=== PATIENT | male | born 1945 | race Caucasian/White ===

== ENCOUNTER 2016-10-08 13:35 | Outpatient (CLI) | payer MEDICARE, OTHER | END 2016-10-08 13:36 | disposition home or self-care (01) | DX: G47.33 Obstructive sleep apnea (adult) (pediatric) (principal) | CPT/HCPCS: 99214; G0463 ==

== ENCOUNTER 2017-01-30 08:50 | Outpatient (CLI) | payer MEDICARE, OTHER ==
[2017-01-30 13:25] LABS: BASOPHILS % (AUTO) 0.4 %; EOSINOPHILS # (AUTO) 0.1 10^3/uL (0.0-0.7); EOSINOPHILS % (AUTO) 1.2 %; HCT - HEMATOCRIT 40.5 % (42.0-52.0); HGB - HEMOGLOBIN 13.2 g/dL (14.0-18.0); LYMPHOCYTES % (AUTO) 32.5 %; MEAN CORPUSCULAR HEMOGLOBIN 29.5 pg (27.0-31.0); MEAN CORPUSCULAR HGB CONC 32.7 g/dL (32.0-36.0); MEAN CORPUSCULAR VOLUME 90.3 fL (80.0-94.0); MEAN PLATELET VOLUME 8.7 fL (7.4-11.4); MONOCYTES # (AUTO) 0.7 10^3/uL (0.0-1.0); MONOCYTES % (AUTO) 11.1 %; NEUTROPHILS # (AUTO) 3.4 10^3/uL (1.5-6.6); NEUTROPHILS % (AUTO) 54.8 %; RED BLOOD COUNT 4.49 10^6/uL (4.70-6.10); UNCORRECTED WHITE BLOOD COUNT 6.3 x10^3/uL; WHITE BLOOD COUNT 6.3 x10^3/uL (4.8-10.8)
[2017-01-30 13:53] LABS: ALBUMIN/GLOBULIN RATIO 1.2 (1.0-2.2); BILIRUBIN,TOTAL 0.4 mg/dL (0.2-1.0); BUN - BLOOD UREA NITROGEN 19 mg/dL (6-20); CALCIUM 9.5 mg/dL (8.5-10.3); CARBON DIOXIDE - CO2 24 mmol/L (21-32); CHLORIDE 106 mmol/L (101-111); CHOLESTEROL 128 mg/dL; CREATININE 1.1 mg/dL (0.6-1.2); GFR - MDRD 66 (>89); GLUCOSE 173 mg/dL (70-100); HDL CHOLESTEROL 43 mg/dL; LDL/HDL RATIO 1.3 (<3.6); SODIUM 139 mmol/L (135-145); TOTAL PROTEIN 7.6 g/dL (6.7-8.2); TRIGLYCERIDES 139 mg/dL; VLDL CHOLESTEROL 28 mg/dL
[2017-01-30 14:14] LABS: HEMOGLOBIN A1C 0.66 g/dL
== END 2017-01-30 08:51 | disposition home or self-care (01) ==
LOC: LAB.WCP 08:50
PROVIDERS: ATTEND Family Medicine
DX: E11.9 Type 2 diabetes mellitus without complications (principal); Z12.5 Encounter for screening for malignant neoplasm of prostate
CPT/HCPCS: 36415; 80053; 80061; 82043; 83036; 85025; G0103; 84153

== ENCOUNTER → 2017-05-06 | Outpatient (CLI) | payer MEDICARE, OTHER ==
[2017-05-06 13:14] LABS: BASOPHILS % (AUTO) 0.5 %; EOSINOPHILS # (AUTO) 0.1 10^3/uL (0.0-0.7); EOSINOPHILS % (AUTO) 1.4 %; HCT - HEMATOCRIT 40.2 % (42.0-52.0); HGB - HEMOGLOBIN 13.5 g/dL (14.0-18.0); LYMPHOCYTES # (AUTO) 2.3 10^3/uL (1.5-3.5); LYMPHOCYTES % (AUTO) 36.6 %; MEAN CORPUSCULAR HEMOGLOBIN 30.2 pg (27.0-31.0); MEAN CORPUSCULAR HGB CONC 33.5 g/dL (32.0-36.0); MEAN CORPUSCULAR VOLUME 90.1 fL (80.0-94.0); MONOCYTES # (AUTO) 0.6 10^3/uL (0.0-1.0); NEUTROPHILS # (AUTO) 3.3 10^3/uL (1.5-6.6); NEUTROPHILS % (AUTO) 51.5 %; NUCLEATED RED BLOOD CELLS AUTO 0.1 /100WBC; RED BLOOD COUNT 4.46 10^6/uL (4.70-6.10); RED CELL DISTRIBUTION WIDTH 14.7 % (12.0-15.0); UNCORRECTED WHITE BLOOD COUNT 6.4 x10^3/uL; WHITE BLOOD COUNT 6.4 x10^3/uL (4.8-10.8)
[2017-05-06 13:18] LABS: ALBUMIN/GLOBULIN RATIO 1.6 (1.0-2.2); BILIRUBIN,TOTAL 0.7 mg/dL (0.2-1.0); BUN - BLOOD UREA NITROGEN 18 mg/dL (6-20); CALCIUM 9.4 mg/dL (8.5-10.3); CARBON DIOXIDE - CO2 26 mmol/L (21-32); CHLORIDE 103 mmol/L (101-111); CHOLESTEROL 134 mg/dL; CREATININE 1.3 mg/dL (0.6-1.2); GFR - MDRD 55 (>89); GLUCOSE 188 mg/dL (70-100); HDL CHOLESTEROL 45 mg/dL; LDL/HDL RATIO 1.2 (<3.6); POTASSIUM 4.2 mmol/L (3.5-5.0); SODIUM 137 mmol/L (135-145); TOTAL PROTEIN 7.3 g/dL (6.7-8.2); TRIGLYCERIDES 166 mg/dL; URIC ACID 5.4 mg/dL (2.6-7.2); VLDL CHOLESTEROL 33 mg/dL
[2017-05-06 13:35] LABS: HEMOGLOBIN A1C 0.71 g/dL
== END ==
LOC: LAB.WCP 10:33
PROVIDERS: ATTEND Family Medicine
DX: E11.9 Type 2 diabetes mellitus without complications (principal); M25.50 Pain in unspecified joint
CPT/HCPCS: 36415; 80053; 80061; 83036; 84443; 84550; 85025; 85651; 86140; 86430

== ENCOUNTER 2017-05-10 08:57 | Outpatient (CLI) | payer MEDICARE, OTHER ==
--- NOTE | 2017-05-11 16:52 | Ultrasound Report ---
EXAM: RIGHT LOWER EXTREMITY ULTRASOUND - LIMITED EXAM DATE: 05/10/2017 09:28 AM. CLINICAL HISTORY: Palpable right calf lump for 6 months with increasing size COMPARISON: None available. TECHNIQUE: Real-time scanning was performed with static images obtained. FINDINGS: Sonographic evaluation over the area of palpable concern in the right calf shows no abnorma lity. IMPRESSION: 1. No focal sonographic abnormality identified in the area of concern. 2. If there is persistent clinical concern, consider contrast enhanced CT or MRI. [facility] Referring Provider Line: [phone] SITE ID: [id number]
== END 2017-05-10 08:58 | disposition home or self-care (01) ==
LOC: DI 08:57
PROVIDERS: ATTEND Family Medicine
DX: D49.2 Neoplasm of unspecified behavior of bone, soft tissue, and skin (principal)
CPT/HCPCS: 76882

== ENCOUNTER 2017-08-27 15:11 | Outpatient (CLI) | payer MEDICARE, OTHER ==
[2017-08-27 13:47] LABS: BASOPHILS # (AUTO) 0.1 10^3/uL (0.0-0.1); BASOPHILS % (AUTO) 0.7 %; EOSINOPHILS # (AUTO) 0.1 10^3/uL (0.0-0.7); EOSINOPHILS % (AUTO) 1.1 %; HGB - HEMOGLOBIN 14.5 g/dL (14.0-18.0); LYMPHOCYTES # (AUTO) 2.4 10^3/uL (1.5-3.5); LYMPHOCYTES % (AUTO) 32.8 %; MEAN CORPUSCULAR HEMOGLOBIN 30.2 pg (27.0-31.0); MEAN CORPUSCULAR HGB CONC 33.7 g/dL (32.0-36.0); MEAN CORPUSCULAR VOLUME 89.7 fL (80.0-94.0); MEAN PLATELET VOLUME 8.9 fL (7.4-11.4); MONOCYTES # (AUTO) 0.7 10^3/uL (0.0-1.0); MONOCYTES % (AUTO) 9.5 %; NEUTROPHILS % (AUTO) 55.9 %; PLT - PLATELET COUNT 173 10^3/uL (130-450); RED BLOOD COUNT 4.81 10^6/uL (4.70-6.10); RED CELL DISTRIBUTION WIDTH 14.4 % (12.0-15.0); WHITE BLOOD COUNT 7.2 x10^3/uL (4.8-10.8)
[2017-08-27 14:24] LABS: ALBUMIN 4.3 g/dL (3.2-5.5); ALBUMIN/GLOBULIN RATIO 1.4 (1.0-2.2); BILIRUBIN,TOTAL 0.6 mg/dL (0.2-1.0); CALCIUM 9.4 mg/dL (8.5-10.3); TOTAL PROTEIN 7.3 g/dL (6.7-8.2)
[2017-08-27 16:36] LABS: HB2 TOTAL 15.3 g/dL; HEMOGLOBIN A1C 0.82 g/dL; HEMOGLOBIN A1C % 7.1 % (4.6-6.2)
== END 2017-08-27 15:12 | disposition home or self-care (01) ==
LOC: LAB.WCP 15:11
PROVIDERS: ATTEND Family Medicine
DX: R10.13 Epigastric pain (principal); E11.9 Type 2 diabetes mellitus without complications
CPT/HCPCS: 36415; 80053; 83036; 83690; 85025

== ENCOUNTER 2017-09-06 10:09 | Emergency (ER) | payer MEDICARE, OTHER ==
--- NOTE | 2017-09-06 11:07 | XRAY Report ---
EXAM: CHEST RADIOGRAPHY EXAM DATE: 09/06/2017 10:53 AM. CLINICAL HISTORY: Cough. Hemoptysis. COMPARISON: 05/13/2016 chest x-ray. TECHNIQUE: 2 views. FINDINGS: Lungs/Pleura: Focal increased airspace opacity in the right upper lobe compared to prior study. Persi stent chronic asymmetric increased opacity in right middle lobe is once again seen. No other new inte rstitial or airspace opacities. No pleural effusion. No pneumothorax. Mediastinum: Heart and mediastinal contours are unremarkable. Other: None. IMPRESSION: 1. Asymmetric increased airspace opacity in right lung with new airspace opacities in the right upper lobe and persistent chronic right middle lobe airspace opacity. In the setting of hemoptysis, opacit y related to blood is a consideration. CT/CTA of the chest could be considered for further assessment . 2. Exam otherwise as above. [facility] Referring Provider Line: [phone] SITE ID: [id number]
--- NOTE | 2017-09-06 11:07 | XRAY Preliminary Report ---
Exam: XR CHEST 2 VIEW X-RAY IMPRESSION: 1. Asymmetric increased airspace opacity in right lung with new airspace opacities in the right upper lobe and persistent chronic right middle lobe airspace opacity. In the setting of hemoptysis, opacit y related to blood is a consideration. CT/CTA of the chest could be considered for further assessment . 2. Exam otherwise as above. [facility] SITE ID: [id number]
--- NOTE | 2017-09-06 12:18 | ED Physician Documentation ---
PD HPI DYSPNEA - Stated complaint Stated Complaint: COUGH - Chief complaint Chief Complaint: Resp - History obtained from History obtained from: Patient, Family - History of Present Illness Timing - onset: Other (He has had ongoing cough for several months, it really was not bothering him much. He does have a history of CVA, A. fib. He is on Eliquis. He also uses BiPAP at night. About 36 hours ago he developed shaking chills and body aches. His cough increased a little bit but it is still not bad. Initially he had blood-tinged sputum but today has had 5 episodes of gross hemoptysis. He has had clots, the describes him as being dime sized. Not mixed with sputum.) Review of Systems Ten Systems: 10 systems reviewed and negative Constitutional: reports: Fever, Chills, Myalgias, Fatigue Ears: denies: Drainage/discharge Nose: reports: Rhinorrhea / runny nose. denies: Congestion Throat: denies: Sore throat Respiratory: reports: Dyspnea, Cough, Hemoptysis. denies: Wheezing PD PAST MEDICAL HISTORY - Past Medical History Past Medical History: Yes Cardiovascular: Hypertension, High cholesterol, Atrial fibrillation Endocrine/Autoimmune: Type 2 diabetes - Past Surgical History Past Surgical History: Yes Ortho: Shoulder arthroplasty, Spine surgery, Other - Present Medications Home Medications: Ambulatory Orders Medication Instructions Recorded Confirmed Clopidogrel Bisulfate [Plavix] 1 tab PO DAILY 06/22/15 06/23/15 Cyanocobalamin (Vitamin B-12) 1,000 mg PO DAILY 06/22/15 06/23/15 [Vitamin B12] Fenofibrate Nanocrystallized 1 tab PO DAILY 06/22/15 06/22/15 [Tricor] Fluticasone [Flonase] 1 spray NS DAILY PRN 06/22/15 06/23/15 Gabapentin 1 tab PO DAILY 06/22/15 06/23/15 Insulin Glargine,Hum.rec.anlog 70 units SQ DAILY 06/22/15 06/22/15 [Lantus] Insulin Regular Human [NovoLIN R] 18 units SQ TID 06/22/15 06/22/15 Lisinopril 20 mg PO DAILY 06/22/15 06/22/15 Loratadine [Claritin] 1 tab PO DAILY 06/22/15 06/23/15 Metoprolol Tartrate [Lopressor] 50 mg PO BID 06/22/15 06/23/15 Niacin 1 tab PO DAILY 06/22/15 06/22/15 [place]-3 Fatty Acids [Fish Oil] 1 tab PO DAILY 06/22/15 06/23/15 Ranitidine HCl [Zantac] 1 tab PO BID 06/22/15 06/23/15 Simvastatin 1 tab PO DAILY 06/22/15 06/22/15 Tadalafil [Cialis] 1 tab PO DAILY PRN 06/22/15 06/22/15 Doxycycline Hyclate 100 mg PO BID #14 tablet 09/06/17 guaiFENesin/CODEINE [Robitussin AC] 5 - 10 ml PO Q6H PRN #120 ml 09/06/17 - Allergies Allergies/Adverse Reactions: Allergies Allergy/AdvReac Type Severity Reaction Status Date / Time amoxicillin trihydrate * Allergy Unknown Verified 09/06/17 10:24 [From Augmentin] potassium clavulanate * Allergy Unknown Verified 09/06/17 10:24 [From Augmentin] pseudoephedrine HCl * Allergy Anaphylaxis Verified 09/06/17 10:24 [From Sudafed] - Social History Does the pt smoke?: No Smoking Status: Never smoker Does the pt drink ETOH?: Yes ETOH Use: Liquor Does the pt have substance abuse?: No - Immunizations Immunizations are current?: Yes - POLST Patient has POLST: No PD ED PE NORMAL - Vitals Vital signs reviewed: Yes - General General: Alert and oriented X 3, No acute distress - HEENT HEENT: Ears normal, Pharynx benign - Neck Neck: Supple, no meningeal sign, No bony TTP - Cardiac Cardiac: RRR, No murmur - Respiratory Respiratory: No respiratory distress, Clear bilaterally - Abdomen Abdomen: Non tender - Derm Derm: No rash - Neuro Neuro: Alert and oriented X 3, Normal speech Results - Vitals Vitals: Vital Signs - 24 hr 09/06/17 09/06/17 10:19 12:51 Temperature 36.0 C L 36.5 C Heart Rate 70 70 Respiratory 20 20 Rate Blood Pressure 126/56 L 130/82 H O2 Saturation 98 95 Oxygen O2 Source Room air - Labs Labs: Laboratory Tests 09/06/17 09/06/17 09/06/17 11:25 11:25 12:25 WBC 12.7 H RBC 4.68 L Hgb 14.0 Hct 42.3 MCV 90.3 MCH 29.8 MCHC 33.0 RDW 14.4 Plt Count 167 MPV 8.7 Neut # 8.7 H Lymph # 2.5 [place] # 1.4 H Eos # 0.1 Baso # 0.0 Absolute Nucleated RBC 0.00 Nucleated RBC % 0.0 Sodium 138 Potassium 4.0 Chloride 97 L Carbon Dioxide 24 Anion Gap 17.0 H BUN 15 Creatinine 1.2 Estimated GFR (MDRD) 60 L Glucose 207 H Calcium 9.8 Total Bilirubin 0.6 AST 25 ALT 29 Alkaline Phosphatase 43 Total Protein 8.3 H Albumin 4.5 Globulin 3.8 Albumin/Globulin Ratio 1.2 Lipase 23 Influenza A (Rapid) Negative Influenza B (Rapid) Negative Influenza Types A,B Ag - - Rads (name of study) 2v chest Radiology: EMP read contemporaneously (Asymmetric airspace in the right lung, could be blood.) CT Chest Radiology: EMP read contemporaneously (Small but multilobar airspace consolidation most consistent with pneumonia, coronary disease and lymphadenopathy, aortic valve calcifications, small hiatal hernia and a fatty liver.) PD MEDICAL DECISION MAKING - ED course ED course: 72-year-old gentleman's who presents with symptoms most consistent with pneumonia but has had at least moderate volume hemoptysis, although not gross hemoptysis. Given the x-ray findings this was followed with a CT with results as shown. We placed him on doxycycline, it sounds most like post influenza pneumonia even though his Flu swab is negative. Follow-up advised for the findings on the CT of the chest. Departure - Departure Disposition: 01 Home, Self Care Clinical Impression: Aortic valve calcification Pneumonia Qualifiers: Pneumonia type: due to unspecified organism Laterality: right Lung location: unspecified part of lung Qualified Code(s): J18.9 - Pneumonia, unspecified organism Coronary artery disease Qualifiers: Coronary Disease-Associated Artery/Lesion type: [place] artery [place] vs. transplanted heart: [place] heart Associated angina: without angina Qualified Code(s): I25.10 - Atherosclerotic heart disease of [place] coronary artery without angina pectoris Condition: Good Record reviewed to determine appropriate education?: Yes Instructions: Pneumonia Dc Follow-Up: Emma Hoffman DO [Primary Care Provider] - Prescriptions: Doxycycline Hyclate 100 mg PO BID #14 tablet guaiFENesin/CODEINE [Robitussin AC] 5 - 10 ml PO Q6H PRN #120 ml PRN Reason: Cough Comments: Follow-up with your physician sometime next week. Anticipate she will want to repeat a chest x-ray in 4-6 weeks as discussed. Also follow-up with your bottle assembler, he may want to do further evaluation on the coronary disease seen on your chest CT. Return if worse. Your blood pressure was elevated today on check into the emergency department. This does not mean that you have hypertension, it is a common phenomenon to come to the emergency department and have elevated blood pressure. I recommend that you see your primary care physician within the week to have it rechecked when you are feeling better.
[2017-09-06 12:46] LABS: BASOPHILS % (AUTO) 0.3 %; EOSINOPHILS # (AUTO) 0.1 10^3/uL (0.0-0.7); EOSINOPHILS % (AUTO) 0.8 %; LYMPHOCYTES # (AUTO) 2.5 10^3/uL (1.5-3.5); LYMPHOCYTES % (AUTO) 19.9 %; MEAN CORPUSCULAR HEMOGLOBIN 29.8 pg (27.0-31.0); MEAN CORPUSCULAR VOLUME 90.3 fL (80.0-94.0); MEAN PLATELET VOLUME 8.7 fL (7.4-11.4); MONOCYTES # (AUTO) 1.4 10^3/uL (0.0-1.0); MONOCYTES % (AUTO) 10.7 %; NEUTROPHILS # (AUTO) 8.7 10^3/uL (1.5-6.6); NEUTROPHILS % (AUTO) 68.3 %; PLT - PLATELET COUNT 167 10^3/uL (130-450); RED BLOOD COUNT 4.68 10^6/uL (4.70-6.10); RED CELL DISTRIBUTION WIDTH 14.4 % (12.0-15.0); WHITE BLOOD COUNT 12.7 x10^3/uL (4.8-10.8)
[2017-09-06 12:58] LABS: ALBUMIN 4.5 g/dL (3.2-5.5); ALBUMIN/GLOBULIN RATIO 1.2 (1.0-2.2); BILIRUBIN,TOTAL 0.6 mg/dL (0.2-1.0); CALCIUM 9.8 mg/dL (8.5-10.3); CREATININE 1.2 mg/dL (0.6-1.2); TOTAL PROTEIN 8.3 g/dL (6.7-8.2)
[2017-09-06] MEDS ORDERED: IOPAMIDOL-300 100 ML VIAL ONE (13:07)
[2017-09-06] MEDS ORDERED: IOPAMIDOL-300 100 ML VIAL IVP ONE ×2 (13:24)
--- NOTE | 2017-09-06 13:53 | CT Preliminary Report ---
Exam: CT CHEST W/ IMPRESSION: 1. Multilobar airspace consolidation consistent with multilobar pneumonia. Multilobar parenchymal hem orrhage considered less likely. Follow-up radiographs are recommended in 4-6 weeks to assess for franco ge/resolution. 2. Numerous subcentimeter mediastinal and hilar lymph nodes. 3. Moderate coronary atherosclerosis. Aortic valve calcifications which can be seen with aortic valve disease. 4. Small hiatal hernia. 5. Fatty liver. [facility] SITE ID: [id number]
--- NOTE | 2017-09-06 14:07 | CT Report ---
EXAM: CT CHEST EXAM DATE: 09/06/2017 01:23 PM. CLINICAL HISTORY: Abnormal chest x-ray, hemoptysis. COMPARISONS: 05/13/2016. 09/06/2013. TECHNIQUE: Routine helical CT imaging was performed through the chest. IV contrast: 80 mL of Isovue-3 70. Reconstructions: Coronal and sagittal. In accordance with CT protocol optimization, one or more of the following dose reduction techniques w ere utilized for this exam: automated exposure control, adjustment of mA and/or KV based on patient s ize, or use of iterative reconstructive technique. FINDINGS: Lungs/Pleura: Airspace consolidation is seen along the mid medial and inferior right upper lobe as we ll as the right middle lobe medially and the medial right lower lobe. Inferior both anterior and post erior left lower lobe airspace consolidation is also evident. Groundglass opacities are seen in the r ight upper lobe. No endobronchial obstruction. No pneumothorax or pleural effusions. Mediastinum: Visualized thyroid gland is unremarkable. Subcentimeter mediastinal and hilar lymph node s are seen with the largest measuring 7 mm in short axis dimension. Heart size is normal. Coronary ar deirdre calcifications are seen, moderate in degree. Aortic valve calcifications are evident. Pulmonary arteries are unremarkable without evidence for radha tral embolus. Trace pericardial fusion. Small hiatal hernia. Bones: Degenerative changes of the thoracic spine. No acute osseous abnormalities. Visualized Abdomen: Fatty liver. Included portions of the gallbladder, adrenal, spleen, pancreas, and kidneys are unremarkable. Abdominal aorta atherosclerotic calcified plaque. Other: None. IMPRESSION: 1. Multilobar airspace consolidation consistent with multilobar pneumonia. Multilobar parenchymal hem orrhage possible although considered less likely. Follow-up radiographs are recommended in 4-6 weeks to assess for change/resolution. 2. Numerous subcentimeter mediastinal and hilar lymph nodes. 3. Moderate coronary artery atherosclerosis. Aortic valve calcifications which can be seen with aorti c valve disease. 4. Small hiatal hernia. 5. Fatty liver. [facility] Referring Provider Line: [phone] SITE ID: [id number]
[2017-09-06] MEDS ORDERED: DOXYCYCLINE 100 MG TABLET PO STA (14:14)
[2017-09-06 14:34] VITALS: BP 142/73
== END 2017-09-06 14:35 | disposition home or self-care (01) ==
LOC: ED 10:09
DX: I70.0 Atherosclerosis of aorta (principal); J18.9 Pneumonia, unspecified organism; I25.10 Atherosclerotic heart disease of native coronary artery without angina pectoris; E78.00 Pure hypercholesterolemia, unspecified; E11.9 Type 2 diabetes mellitus without complications; I10 Essential (primary) hypertension; I48.91 Unspecified atrial fibrillation; Z79.4 Long term (current) use of insulin; Z86.73 Personal history of transient ischemic attack (TIA), and cerebral infarction without residual deficits; Z79.01 Long term (current) use of anticoagulants
CPT/HCPCS: 36415; 71046; 71260; 80053; 83690; 85025; 87070; 87077; 87205; 87275; 87276; 99283; 99284; A9270; Q9967

== ENCOUNTER 2017-10-27 11:13 | Outpatient (CLI) | payer MEDICARE, OTHER | END 2017-10-27 11:14 | disposition home or self-care (01) | LOC: SC 11:13 | PROVIDERS: ATTEND Nurse Practitioner Family | DX: G47.33 Obstructive sleep apnea (adult) (pediatric) (principal) | CPT/HCPCS: 99214; G0463; 99212 ==

== ENCOUNTER 2018-03-23 11:08 | Outpatient (CLI) | payer MEDICARE, OTHER | END 2018-03-23 11:09 | disposition critical access hospital (66) | LOC: EMS 11:08 | PROVIDERS: ATTEND Surgery | DX: R45.851 Suicidal ideations (principal) | CPT/HCPCS: A0425; A0429 ==

== ENCOUNTER 2018-03-23 11:30 | Emergency (ER) | payer MEDICARE, OTHER ==
[2018-03-23 11:59] LABS: BASOPHILS % (AUTO) 0.7 %; EOSINOPHILS # (AUTO) 0.1 10^3/uL (0.0-0.7); EOSINOPHILS % (AUTO) 1.3 %; HGB - HEMOGLOBIN 13.1 g/dL (14.0-18.0); LYMPHOCYTES # (AUTO) 2.1 10^3/uL (1.5-3.5); LYMPHOCYTES % (AUTO) 32.9 %; MEAN CORPUSCULAR HEMOGLOBIN 30.7 pg (27.0-31.0); MEAN CORPUSCULAR HGB CONC 33.3 g/dL (32.0-36.0); MEAN CORPUSCULAR VOLUME 92.3 fL (80.0-94.0); MEAN PLATELET VOLUME 8.6 fL (7.4-11.4); MONOCYTES # (AUTO) 0.7 10^3/uL (0.0-1.0); MONOCYTES % (AUTO) 10.9 %; NEUTROPHILS # (AUTO) 3.5 10^3/uL (1.5-6.6); NEUTROPHILS % (AUTO) 54.2 %; PLT - PLATELET COUNT 176 10^3/uL (130-450); RED BLOOD COUNT 4.26 10^6/uL (4.70-6.10); RED CELL DISTRIBUTION WIDTH 14.8 % (12.0-15.0); WHITE BLOOD COUNT 6.4 x10^3/uL (4.8-10.8)
--- NOTE | 2018-03-23 12:14 | ED Physician Documentation ---
History of Present Illness - Stated complaint Stated Complaint: SI - Chief complaint Chief Complaint: MHE - Additonal information Additional information: hx from pt 72 male BIBA for suicidal ideation pt states his is his stressor his plan is to walk into traffic he has not harmed himself yet he denies HI he dies hallucinations he has not had any recent illness - no fever cough NVD urinary sx Review of Systems Constitutional: denies: Fever, Chills Cardiac: denies: Chest pain / pressure Respiratory: denies: Dyspnea GI: denies: Abdominal Pain, Nausea, Vomiting : denies: Dysuria Skin: denies: Rash Musculoskeletal: denies: Neck pain Neurologic: denies: Headache Psychiatric: reports: Depressed, Suicidal. denies: Homicidal, Hallucinations Endocrine: denies: Easy bruising / bleeding Immunocompromised: denies: Immunocompromised PD PAST MEDICAL HISTORY - Past Medical History Cardiovascular: Hypertension, High cholesterol, Atrial fibrillation Endocrine/Autoimmune: Type 2 diabetes - Past Surgical History Past Surgical History: Yes Ortho: Shoulder arthroplasty, Spine surgery, Other - Present Medications Home Medications: Ambulatory Orders Medication Instructions Recorded Confirmed Clopidogrel Bisulfate [Plavix] 1 tab PO DAILY 06/22/15 06/23/15 Cyanocobalamin (Vitamin B-12) 1,000 mg PO DAILY 06/22/15 06/23/15 [Vitamin B12] Fenofibrate Nanocrystallized 1 tab PO DAILY 06/22/15 06/22/15 [Tricor] Fluticasone [Flonase] 1 spray NS DAILY PRN 06/22/15 06/23/15 Gabapentin 1 tab PO DAILY 06/22/15 06/23/15 Insulin Glargine,Hum.rec.anlog 70 units SQ DAILY 06/22/15 06/22/15 [Lantus] Insulin Regular Human [NovoLIN R] 30 units SQ TID 06/22/15 06/22/15 Lisinopril 20 mg PO DAILY 06/22/15 06/22/15 Loratadine [Claritin] 1 tab PO DAILY 06/22/15 06/23/15 Metoprolol Tartrate [Lopressor] 50 mg PO BID 06/22/15 06/23/15 Niacin 1 tab PO DAILY 06/22/15 06/22/15 [place]-3 Fatty Acids [Fish Oil] 1 tab PO DAILY 06/22/15 06/23/15 Ranitidine HCl [Zantac] 1 tab PO BID 06/22/15 06/23/15 Simvastatin 1 tab PO DAILY 06/22/15 06/22/15 Tadalafil [Cialis] 1 tab PO DAILY PRN 06/22/15 06/22/15 Doxycycline Hyclate 100 mg PO BID #14 tablet 09/06/17 guaiFENesin/CODEINE [Robitussin AC] 5 - 10 ml PO Q6H PRN #120 ml 09/06/17 - Allergies Allergies/Adverse Reactions: Allergies Allergy/AdvReac Type Severity Reaction Status Date / Time amoxicillin trihydrate * Allergy Unknown Verified 03/23/18 11:43 [From Augmentin] potassium clavulanate * Allergy Unknown Verified 03/23/18 11:43 [From Augmentin] pseudoephedrine HCl * Allergy Anaphylaxis Verified 03/23/18 11:43 [From Sudafed] - Social History Does the pt smoke?: No Smoking Status: Never smoker Does the pt drink ETOH?: Yes Does the pt have substance abuse?: No - Immunizations Immunizations are current?: Yes - POLST Patient has POLST: No PD ED PE NORMAL - Vitals Vital signs reviewed: Yes - Neck Neck: Supple, no meningeal sign - Cardiac Cardiac: RRR - Respiratory Respiratory: No respiratory distress, Clear bilaterally - Abdomen Abdomen: Soft, Non tender - Derm Derm: Normal color - Neuro Neuro: Alert and oriented X 3, law firm administrator 2-12 intact, No motor deficit, No sensory deficit, Normal speech Eye Opening: Spontaneous Motor: Obeys Commands Verbal: Oriented GCS Score: 15 - Psych Psych: Other (depressed and admits to feeling suicidal) Results - Vitals Vitals: Vital Signs - 24 hr 03/23/18 03/23/18 11:35 13:02 Temperature 36.4 C L Heart Rate 69 65 Respiratory 16 20 Rate Blood Pressure 130/70 134/64 H O2 Saturation 94 97 Oxygen O2 Source Room air - Labs Labs: Laboratory Tests 03/23/18 03/23/18 03/23/18 11:54 11:54 11:54 WBC 6.4 RBC 4.26 L Hgb 13.1 L Hct 39.3 L MCV 92.3 MCH 30.7 MCHC 33.3 RDW 14.8 Plt Count 176 MPV 8.6 Neut # (Auto) 3.5 Lymph # (Auto) 2.1 [place] # (Auto) 0.7 Eos # (Auto) 0.1 Baso # (Auto) 0.0 Absolute Nucleated RBC 0.00 Nucleated RBC % 0.0 Sodium 137 Potassium 4.0 Chloride 102 Carbon Dioxide 30 Anion Gap 5.0 L BUN 15 Creatinine 1.0 Estimated GFR (MDRD) 74 L Glucose 197 H Calcium 9.1 Total Bilirubin 1.3 H AST 33 ALT 29 Alkaline Phosphatase 44 Total Protein 7.0 Albumin 3.9 Globulin 3.1 Albumin/Globulin Ratio 1.3 Lipase 25 TSH 1.85 Urine Color Urine Clarity Urine pH Ur Specific [place] Urine Protein Urine Glucose (UA) Urine Ketones Urine Occult Blood Urine Nitrite Urine Bilirubin Urine Urobilinogen Ur Leukocyte Esterase Ur Microscopic Review Urine Culture Comments Salicylates < 6.0 Urine Opiates Screen Ur Oxycodone Screen Urine Methadone Screen Ur Propoxyphene Screen Acetaminophen < 10 L Ur Barbiturates Screen Ur Tricyclics Screen Ur Phencyclidine Scrn Ur Amphetamine Screen U Methamphetamines Scrn U Benzodiazepines Scrn Urine Cocaine Screen U Cannabinoids Screen Ethyl Alcohol < 5.0 03/23/18 11:59 WBC RBC Hgb Hct MCV MCH MCHC RDW Plt Count MPV Neut # (Auto) Lymph # (Auto) [place] # (Auto) Eos # (Auto) Baso # (Auto) Absolute Nucleated RBC Nucleated RBC % Sodium Potassium Chloride Carbon Dioxide Anion Gap BUN Creatinine Estimated GFR (MDRD) Glucose Calcium Total Bilirubin AST ALT Alkaline Phosphatase Total Protein Albumin Globulin Albumin/Globulin Ratio Lipase TSH Urine Color YELLOW Urine Clarity CLEAR Urine pH 7.5 Ur Specific [place] 1.015 Urine Protein NEGATIVE Urine Glucose (UA) NEGATIVE Urine Ketones NEGATIVE Urine Occult Blood NEGATIVE Urine Nitrite NEGATIVE Urine Bilirubin NEGATIVE Urine Urobilinogen 0.2 (NORMAL) Ur Leukocyte Esterase NEGATIVE Ur Microscopic Review NOT INDICATED Urine Culture Comments NOT INDICATED Salicylates Urine Opiates Screen NEGATIVE Ur Oxycodone Screen NEGATIVE Urine Methadone Screen NEGATIVE Ur Propoxyphene Screen NEGATIVE Acetaminophen Ur Barbiturates Screen NEGATIVE Ur Tricyclics Screen NEGATIVE Ur Phencyclidine Scrn NEGATIVE Ur Amphetamine Screen NEGATIVE U Methamphetamines Scrn NEGATIVE U Benzodiazepines Scrn NEGATIVE Urine Cocaine Screen NEGATIVE U Cannabinoids Screen NEGATIVE Ethyl Alcohol PD MEDICAL DECISION MAKING - ED course ED course: pt medically clear seen by VERONA he told SW he does not really want to he has extended family support on cymbalta rx by PMD VERONA feels he i safe to dc home and she will arrange outpt follow uo at [facility] and [facility] crisis call and he has the crisis number pt takes insulin regular 30 units BID - nurse even called PMD to confirm - he requested his usual dose and had eaten lunch - dose was given - but no rpt blood sugar prior to dc - nurse Merary is going to call pt and have him recheck his blood sugar for us - pt was fine and blood sugar was 166 - Sepsis Event Vital Signs: Vital Signs - 24 hr 03/23/18 03/23/18 11:35 13:02 Temperature 36.4 C L Heart Rate 69 65 Respiratory 16 20 Rate Blood Pressure 130/70 134/64 H O2 Saturation 94 97 Oxygen O2 Source Room air Departure - Departure Disposition: 01 Home, Self Care Clinical Impression: Suicidal ideation Depression Qualifiers: Depression Type: unspecified Qualified Code(s): F32.9 - Major depressive disorder, single episode, unspecified Condition: Good Instructions: ED Depression Comments: Your were seen by the hospital side door worker She feels you are safe to go home. She recommends you continue your cymblata and she has arranged for you to have follow up counseling at [facility] in [place]. You will also get a follow up call from the crisis center And you can always call the crisis line or return to the ER if worse in any way Discharge Date/Time: 03/23/18 15:50
[2018-03-23 12:16] LABS: ALBUMIN 3.9 g/dL (3.2-5.5); ALBUMIN/GLOBULIN RATIO 1.3 (1.0-2.2); ALKALINE PHOSPHATASE 44 IU/L (42-121); ALT ALANINE AMINOTRANSFERASE 29 IU/L (10-60); AST ASPARTATE AMINOTRANSFERASE 33 IU/L (10-42); BILIRUBIN,TOTAL 1.3 mg/dL (0.2-1.0); BUN - BLOOD UREA NITROGEN 15 mg/dL (6-20); CALCIUM 9.1 mg/dL (8.5-10.3); CARBON DIOXIDE - CO2 30 mmol/L (21-32); CHLORIDE 102 mmol/L (101-111); GFR - MDRD 74 (>89); GLUCOSE 197 mg/dL (70-100); LIPASE 25 U/L (22-51); SALICYLATE < 6.0 mg/dL; SODIUM 137 mmol/L (135-145)
[2018-03-23 12:21] LABS: MUDS CUTOFF CONCENTRATIONS CUTOFF CONC BELOW:
[2018-03-23 12:24] LABS: BILIRUBIN,URINE NEGATIVE (NEGATIVE); GLUCOSE, URINE (UA) NEGATIVE (NEGATIVE); KETONES,URINE (UA) NEGATIVE (NEGATIVE); LEUKOCYTE ESTERASE, URINE NEGATIVE (NEGATIVE); NITRITE,URINE NEGATIVE (NEGATIVE); OCCULT BLOOD,URINE NEGATIVE (NEGATIVE); PH,URINE 7.5 PH (5.0-7.5); PROTEIN,URINE NEGATIVE (NEGATIVE); UROBILINOGEN,URINE 0.2 (NORMAL) E.U./dL (NORMAL)
[2018-03-23 12:26] LABS: CLARITY,URINE CLEAR (CLEAR)
[2018-03-23 12:30] LABS: ACETAMINOPHEN < 10 ug/mL (10-30)
[2018-03-23 12:33] LABS: AMPHETAMINE SCREEN,URINE NEGATIVE (NEGATIVE); BENZODIAZEPINES SCREEN, URINE NEGATIVE (NEGATIVE); COCAINE SCREEN URINE NEGATIVE (NEGATIVE); METHADONE SCREEN, URINE NEGATIVE (NEGATIVE); METHAMPHETAMINES SCREEN, URINE NEGATIVE (NEGATIVE); OPIATE SCREEN, URINE NEGATIVE (NEGATIVE); OXYCODONE SCREEN, URINE NEGATIVE (NEGATIVE); PROPOXYPHENE SCREEN, URINE NEGATIVE (NEGATIVE); TRICYCLIC ANTIDEPRESSANT,URINE NEGATIVE (NEGATIVE)
[2018-03-23 13:02] VITALS: BP 134/64
[2018-03-23] MEDS ORDERED: INSULIN REGULAR HUMAN 100 UNIT/1 ML 10 ML MDV SUBQ STA (14:54)
== END 2018-03-23 15:50 | disposition home or self-care (01) ==
LOC: EDUNIT# → ED 11:30
DX: R45.851 Suicidal ideations (principal); F32.9 Major depressive disorder, single episode, unspecified; I10 Essential (primary) hypertension; E11.9 Type 2 diabetes mellitus without complications; Z79.02 Long term (current) use of antithrombotics/antiplatelets; Z79.4 Long term (current) use of insulin
CPT/HCPCS: 36415; 80053; 81003; 83690; 84443; 85025; 99284; J1815; 80306; 80307; 80320; 80329; 81001; 87086

== ENCOUNTER 2018-03-30 09:57 | Outpatient (CLI) | payer MEDICARE, OTHER | END 2018-03-30 09:58 | disposition home or self-care (01) | LOC: SC 09:57 | PROVIDERS: ATTEND Nurse Practitioner Family | DX: G47.33 Obstructive sleep apnea (adult) (pediatric) (principal) | CPT/HCPCS: 99213; G0463; 99212 ==

== ENCOUNTER 2018-05-06 07:02 | Outpatient (CLI) | payer MEDICARE, OTHER ==
[2018-05-06 13:00] LABS: BASOPHILS % (AUTO) 0.5 %; EOSINOPHILS # (AUTO) 0.1 10^3/uL (0.0-0.7); EOSINOPHILS % (AUTO) 1.9 %; HGB - HEMOGLOBIN 13.9 g/dL (14.0-18.0); LYMPHOCYTES # (AUTO) 2.5 10^3/uL (1.5-3.5); LYMPHOCYTES % (AUTO) 37.7 %; MEAN CORPUSCULAR HEMOGLOBIN 30.7 pg (27.0-31.0); MEAN CORPUSCULAR HGB CONC 33.8 g/dL (32.0-36.0); MEAN CORPUSCULAR VOLUME 90.6 fL (80.0-94.0); MEAN PLATELET VOLUME 9.3 fL (7.4-11.4); MONOCYTES # (AUTO) 0.7 10^3/uL (0.0-1.0); MONOCYTES % (AUTO) 11.2 %; NEUTROPHILS # (AUTO) 3.2 10^3/uL (1.5-6.6); NEUTROPHILS % (AUTO) 48.7 %; PLT - PLATELET COUNT 158 10^3/uL (130-450); RED BLOOD COUNT 4.54 10^6/uL (4.70-6.10); RED CELL DISTRIBUTION WIDTH 14.2 % (12.0-15.0); WHITE BLOOD COUNT 6.6 x10^3/uL (4.8-10.8)
[2018-05-06 13:08] LABS: BUN - BLOOD UREA NITROGEN 17 mg/dL (6-20); CALCIUM 9.5 mg/dL (8.5-10.3); CARBON DIOXIDE - CO2 27 mmol/L (21-32); CHLORIDE 102 mmol/L (101-111); CHOL/HDL RATIO 2.9 (<5.0); CHOLESTEROL 119 mg/dL; CREATININE 0.9 mg/dL (0.6-1.2); GFR - MDRD 83 (>89); GLUCOSE 196 mg/dL (70-100); HDL CHOLESTEROL 41 mg/dL; LDL CHOLESTEROL,CALCULATED 66 mg/dL; LDL/HDL RATIO 1.6 (<3.6); SODIUM 138 mmol/L (135-145); VLDL CHOLESTEROL 12 mg/dL
[2018-05-06 13:10] LABS: HB2 TOTAL 14.7 g/dL; HEMOGLOBIN A1C 0.89 g/dL; HEMOGLOBIN A1C % 7.7 % (4.6-6.2)
== END 2018-05-06 07:03 | disposition home or self-care (01) ==
LOC: LAB.WCP 07:02
PROVIDERS: ATTEND Family Medicine
DX: E11.9 Type 2 diabetes mellitus without complications (principal)
CPT/HCPCS: 36415; 80048; 80061; 83036; 83721; 85025

== ENCOUNTER 2018-06-03 09:08 | Outpatient (CLI) | payer MEDICARE, OTHER ==
--- NOTE | 2018-06-03 16:09 | CT Report ---
Reason: FLANK PAIN, RIGHT Procedure Date: 06/03/2018 Accession Number: [id number] / [id number] Procedure: CT - Abdomen/Pelvis W/O CPT Code: FULL RESULT: EXAM: CT ABDOMEN AND PELVIS EXAM DATE: 06/03/2018 09:21 AM. CLINICAL HISTORY: Flank pain, right. COMPARISONS: ABD/PEL 10/25/2010 12:12 AM. TECHNIQUE: Routine helical CT imaging was performed through the abdomen and pelvis. IV contrast: None. Enteric contrast: No. Reconstructions: Coronal and sagittal. In accordance with CT protocol optimization, one or more of the following dose reduction techniques were utilized for this exam: automated exposure control, adjustment of mA and/or KV based on patient size, or use of iterative reconstructive technique. FINDINGS: Lung Bases: Unremarkable. Liver: Normal. No masses. Gallbladder/Bile Ducts: The gallbladder itself demonstrates no noncontrast CT signs of cholecystitis. There is a 1 cm calcific hyperdensity with appearance suggestive of lithiasis in the region of the lorraine hepatis immediately adjacent to the juncture of the first and second portions of the duodenum. The exact location is difficult to determine on noncontrast examination. This does not correspond to the location of the normal major papilla, and there is no overt extrahepatic biliary ductal system dilation. While this may represent intraluminal gastric content, choledocholithiasis is suspected. Spleen: Normal. Pancreas: Normal. Adrenal Glands: Normal. Kidneys: Normal. No masses or hydronephrosis. Peritoneal Cavity/Bowel: Normal. No free fluid, free air or adenopathy. No masses or acute inflammatory process. What is felt to represent the appendix appears normal. Pelvic Organs: Normal. The bladder and visualized pelvic organs are within normal limits. Vasculature: No aneurysms or other significant abnormality. Bones: Interval lumbar spinal fusion. No aggressive osseous lesions. Other: None. IMPRESSION: Question choledocholithiasis as described. There is no CT evidence of cholecystitis or biliary obstruction. Recommend MRCP. [facility]
== END 2018-06-03 09:09 | disposition home or self-care (01) ==
LOC: DI 09:08
PROVIDERS: ATTEND Family Medicine
DX: R10.9 Unspecified abdominal pain (principal)
CPT/HCPCS: 74176

== ENCOUNTER 2018-06-23 07:58 | Day surgery (SDC) | payer MEDICARE, OTHER ==
[~2018-06-23 07:58] MED LIST: BUPIVACAINE 0.25% PF 30 ML VIAL ONE; CLINDAMYCIN 600 MG/50 ML 50 ML IV ONE
[2018-06-23] MEDS ORDERED: LACTATED RINGERS 1,000 ML IV ONE (08:20)
--- NOTE | 2018-06-23 08:31 | ANESTHESIA ---
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 carpal tunnel syndrome - Procedure Left thumb 1st carpometacarpal arthroplasty and carpal tunnel release Vital Signs: Temp Pulse Resp BP Pulse Ox 36.5 C 72 18 155/78 H 97 06/23/18 08:08 06/23/18 08:08 06/23/18 08:08 06/23/18 08:08 06/23/18 08:08 Height 5 ft 6 in Weight (kg) 104.6 kg Body Mass Index 36.3 - NPO >8 hours - Lab Results Current Lab Results: Laboratory Tests 06/23/18 08:21: POC Whole Bld Glucose 238 H Home Medications and Allergies Home Medications: Ambulatory Orders Albuterol Sulfate [Proair Hfa Inhaler] 2 puffs INH Q4H PRN 06/17/18 Amlodipine Besylate 5 mg PO DAILY 06/17/18 Apixaban [Eliquis] 5 mg PO BID 06/17/18 Atorvastatin Calcium 80 mg PO QPM 06/17/18 Cholecalciferol (Vitamin D3) [Vitamin D3] 1,000 unit PO DAILY 06/17/18 Diclofenac Sodium [Diclo Gel] 2 - 4 gm TP TID PRN 06/17/18 Duloxetine HCl 30 mg PO DAILY 06/17/18 Fenofibrate 160 mg PO DAILY 06/17/18 Fluticasone/Salmeterol [Advair 250-50 Diskus] 1 each IH BID 06/17/18 Ipratropium/Albuterol Sulfate [Iprat-Albut 0.5-3(2.5) mg/3 ml] 1 amp IH QID 06/17/18 Magnesium Oxide [Magnesium] 500 mg PO DAILY 06/17/18 Montelukast [Singulair] 10 mg PO DAILY 06/17/18 Tramadol HCl [Ultram] 50 mg PO BID PRN 06/17/18 Cyanocobalamin (Vitamin B-12) [Vitamin B12] 1,000 mg PO DAILY 06/22/15 Fluticasone [Flonase] 1 spray NS BID 06/22/15 Insulin Glargine,Hum.rec.anlog [Lantus] 70 units SQ QPM 06/22/15 Insulin Regular Human [NovoLIN R] 30 units SQ TIDWM 06/22/15 Lisinopril 20 mg PO BID 06/22/15 Loratadine [Claritin] 1 tab PO DAILY 06/22/15 Metoprolol Tartrate [Lopressor] 50 mg PO BID 06/22/15 Tadalafil [Cialis] 1 tab PO DAILY PRN 06/22/15 Albuterol Sulfate [Proair Hfa Inhaler] 2 puffs INH Q4H PRN 06/17/18 Amlodipine Besylate 5 mg PO DAILY 06/17/18 Apixaban [Eliquis] 5 mg PO BID 06/17/18 Atorvastatin Calcium 80 mg PO QPM 06/17/18 Cholecalciferol (Vitamin D3) [Vitamin D3] 1,000 unit PO DAILY 06/17/18 Diclofenac Sodium [Diclo Gel] 2 - 4 gm TP TID PRN 06/17/18 Duloxetine HCl 30 mg PO DAILY 06/17/18 Fenofibrate 160 mg PO DAILY 06/17/18 Fluticasone/Salmeterol [Advair 250-50 Diskus] 1 each IH BID 06/17/18 Ipratropium/Albuterol Sulfate [Iprat-Albut 0.5-3(2.5) mg/3 ml] 1 amp IH QID 06/17/18 Magnesium Oxide [Magnesium] 500 mg PO DAILY 06/17/18 Montelukast [Singulair] 10 mg PO DAILY 06/17/18 Tramadol HCl [Ultram] 50 mg PO BID PRN 06/17/18 Allergies/Adverse Reactions: Allergies Allergy/AdvReac Type Severity Reaction Status Date / Time amoxicillin trihydrate * Allergy severe Verified 06/17/18 10:58 [From Augmentin] diarrhea crab Allergy Rash Verified 06/17/18 10:58 potassium clavulanate * Allergy Unknown Verified 03/23/18 11:43 [From Augmentin] pseudoephedrine HCl * Allergy Anaphylaxis Verified 03/23/18 11:43 [From Sudafed] Anes History & Medical History - Anesthetic History Anesthesia Complications: reports: No previous complications Family history of Anesthesia Complications: Denies Family history of Malignant Hyperthermia: Denies - Medical History Cardiovascular: reports: Congestive heart failure, Hypertension, High cholesterol, Atrial fibrillation Pulmonary: reports: Asthma, Sleep apnea (Uses BiPaP) Urinary: reports: Kidney stones (History of kidney stones) Neuro: reports: CVA (2011 mild expressive aphasia) Musculoskeletal: reports: Osteoarthritis Endocrine/Autoimmune: reports: Type 2 diabetes Blood Disorders: reports: None Skin: reports: None Smoking Status: Former smoker (Quit 1982) Psychosocial: reports: Depression - Surgical History General: Colonoscopy Orthopedic: Rotator cuff repair, Shoulder arthroplasty, Carpal Tunnel surgery, Spine surgery (Cervical and Lumbar), Other Exam General: Alert, Oriented x3, Cooperative, No acute distress Dental: WNL Mouth Openin Fingerbreadth Mallampati classification: III Thyromental Distance: 4-6 cm Respiratory: Lungs clear, Normal breath sounds, No respiratory distress, No accessory muscle use Cardiovascular: Regular rate, Normal S1, Normal S2, No murmurs Mental/Cognitive Status: Alert/Oriented X3, Normal for patient Cognitive Status: Within normal limits Plan Anesthesia Type: General Consent for Procedure(s) Verified and Reviewed: Yes Code Status: Attempt Resuscitation ASA classification: 3-Severe systemic disease Is this case an emergency?: No
[2018-06-23] MEDS ORDERED: DEXAMETHASONE 4 MG/ML VIAL IVP ONE (09:00)
[2018-06-23] MEDS ORDERED: PROPOFOL 1000 MG/100 ML IV ONE (09:00)
[2018-06-23] MEDS ORDERED: fentaNYL 100 MCG/2 ML VIAL IVP ONE (09:00)
[2018-06-23] MEDS ORDERED: LIDOCAINE-MPF 2% 5 ML VIAL IM ONE (09:00)
[2018-06-23] MEDS ORDERED: ONDANSETRON 4 MG/2 ML VIAL IVP ONE (09:00)
[2018-06-23] MEDS ORDERED: ONDANSETRON 4 MG/2 ML VIAL IVP PRN (10:35)
[2018-06-23] MEDS ORDERED: HYDROcod/ACETAM 5/325 MG TABLET PO PRN (10:35)
[2018-06-23 11:29] VITALS: BP 108/50
--- NOTE | 2018-06-23 12:18 | OPERATIVE REPORT ---
DATE OF SERVICE: 06/23/2018 Physician: Anthony Maddox MD PREOPERATIVE DIAGNOSIS: Left hand carpal tunnel syndrome and left hand first carpometacarpal joint a rthritis. POSTOPERATIVE DIAGNOSIS: Left hand carpal tunnel syndrome and left hand first carpometacarpal joint arthritis. PROCEDURE PERFORMED: Left carpal tunnel release and a left thumb carpometacarpal joint arthroplasty with a trapezium excision. OPERATING SURGEON: Anthony Maddox MD ANESTHESIA: General. INDICATIONS FOR SURGERY: Patient is a 72-year-old male with arthritic pain in the base of his left t humb accompanied by carpal tunnel findings and carpal tunnel syndrome. The patient has failed nonope rative treatment. Recommendation is for carpal tunnel release and arthroplasty of the base of his th umb. FINDINGS AT SURGERY: The patient's carpal tunnel was very tight, but there was no constriction evide nt or change in the shape of the nerve or in the contents of the tunnel. The patient's basilar thumb joint was severely arthritic with small osseous loose bodies, but bare articulation at the first met acarpotrapezial joint. DESCRIPTION OF OPERATIVE PROCEDURE: The patient was taken to the operating room, given a general ane sthetic. His hand was sterilely prepped and draped in a standard fashion. The initial procedure was done under tourniquet control at 250 mmHg, marking out a 1-1/2 inch incision in the palm in line wit h the radial border of the ring finger. This was taken through skin and subcutaneous tissue through transverse carpal ligament and then dividing the tissue from the distal wrist flexion crease, down to the superficial arch in the palm. The contents were inspected, irrigated, and the wound closed with interrupted 3-0 nylon. Sterile dressings were not applied. The next procedure was at the base of t he thumb with a 2.5 inch curved incision around the base of the thumb, taken through skin and subcuta neous tissue down to the extensor mechanism of the thumb with the tendons exposed and retracted and t he first extensor compartment released to allow mobilization. The capsule of the first metacarpocarp al joint was entered and flaps were reflected to expose the underlying articulations. Once the trape zium was well exposed, it was divided in 4 segments with a saw and these fragments were completely re moved, leaving no bone fragments behind. The flexor carpi radialis tendon at its base was harvested at the level of the radial styloid, leaving a stump of tendon that was used to graft into the base of the first metacarpal through a drill hole, where the stump was passed with sutures. The area was ir rigated thoroughly. The thumb placed into a stable abducted and reduced position and the graft was t ied down into the tunnel that had been drilled with a 4.5 mm drill. This graft was further reinforce d with anchoring sutures and the tourniquet was deflated. There was minimal bleeding. The remaining capsule of the joint was then carefully closed over the defect of the trapezium and the soft tissue was closed with interrupted Vicryl and Prolene. Sterile dressings were applied. The patient underwe nt injection into the area and into the carpal tunnel for further numbing of the sides. A below elbo w fiberglass thumb spica cast was applied with abundant padding to allow for swelling. The patient w as then taken to recovery room in stable condition. ESTIMATED BLOOD LOSS: Minimal. COMPLICATIONS: None. SPONGE AND NEEDLE COUNTS: Correct. TD: 06/23/2018 11:58
== END 2018-06-23 07:59 | disposition home or self-care (01) ==
LOC: SDS 07:58
PROVIDERS: ATTEND Orthopaedic Surgery
PROC: 0RRT07Z Replacement of Left Carpometacarpal Joint with Autologous Tissue Substitute, Open Approach (ICD-10-PCS; principal; 2018-06-23 09:15)
PROC: 01N50ZZ Release Median Nerve, Open Approach (ICD-10-PCS; 2018-06-23 09:15)
DX: G56.02 Carpal tunnel syndrome, left upper limb (principal); M18.12 Unilateral primary osteoarthritis of first carpometacarpal joint, left hand; E11.9 Type 2 diabetes mellitus without complications; I11.0 Hypertensive heart disease with heart failure; I50.9 Heart failure, unspecified; I48.0 Paroxysmal atrial fibrillation; G47.33 Obstructive sleep apnea (adult) (pediatric); J45.909 Unspecified asthma, uncomplicated; I69.320 Aphasia following cerebral infarction; Z79.51 Long term (current) use of inhaled steroids; Z79.4 Long term (current) use of insulin; Z79.899 Other long term (current) drug therapy; Z87.891 Personal history of nicotine dependence; Z79.01 Long term (current) use of anticoagulants
CPT/HCPCS: 25447; 64721; C1713; J7120

== ENCOUNTER 2018-08-03 07:16 | Outpatient (CLI) | payer MEDICARE, OTHER ==
[2018-08-03 12:58] LABS: CALCIUM 9.3 mg/dL (8.5-10.3)
[2018-08-03 13:59] LABS: HB2 TOTAL 11.9 g/dL; HEMOGLOBIN A1C 0.67 g/dL; HEMOGLOBIN A1C % 7.3 % (4.6-6.2)
== END 2018-08-03 23:59 | disposition home or self-care (01) ==
LOC: LAB.WCP 07:16
PROVIDERS: ATTEND Family Medicine
DX: E11.9 Type 2 diabetes mellitus without complications (principal)
CPT/HCPCS: 36415; 80048; 83036

== ENCOUNTER 2018-10-06 12:02 | Outpatient (CLI) | payer MEDICARE, OTHER ==
--- NOTE | 2018-10-06 13:55 | XRAY Report ---
Reason: COUGH Procedure Date: 10/06/2018 Accession Number: [id number] / [id number] Procedure: WCP - Chest 2 View X-Ray CPT Code: 16616 FULL RESULT: EXAM: CHEST RADIOGRAPHY EXAM DATE: 10/06/2018 12:15 PM. CLINICAL HISTORY: Cough, shortness of breath. COMPARISON: CHEST 2 VIEW PA/LAT 02/09/2018 2:46 PM. TECHNIQUE: 2 views. FINDINGS: Lungs/Pleura: No focal opacities evident. No pleural effusion. No pneumothorax. Normal volumes. Mediastinum: Heart and mediastinal contours are unremarkable. Other: No acute osseous abnormality. There are postsurgical changes of the right acromioclavicular joint. There are mild degenerative changes of the left acromioclavicular joint. There are mild degenerative disk changes of the thoracic spine. IMPRESSION: No focal pulmonary consolidation or other acute cardiopulmonary abnormality. RADIA
== END 2018-10-06 12:03 | disposition home or self-care (01) ==
LOC: DI.WCP 12:02
PROVIDERS: ATTEND Physician Assistant
DX: R05 Cough (principal)
CPT/HCPCS: 36415; 71046; 80053; 85025

== ENCOUNTER 2018-10-06 12:35 | Outpatient (CLI) | payer MEDICARE, OTHER ==
[2018-10-06 19:12] LABS: BASOPHILS % (AUTO) 0.5 %; EOSINOPHILS # (AUTO) 0.1 10^3/uL (0.0-0.7); EOSINOPHILS % (AUTO) 1.6 %; HGB - HEMOGLOBIN 13.6 g/dL (14.0-18.0); LYMPHOCYTES # (AUTO) 2.4 10^3/uL (1.5-3.5); LYMPHOCYTES % (AUTO) 28.6 %; MEAN CORPUSCULAR HEMOGLOBIN 30.1 pg (27.0-31.0); MEAN CORPUSCULAR HGB CONC 32.4 g/dL (32.0-36.0); MEAN CORPUSCULAR VOLUME 92.9 fL (80.0-94.0); MEAN PLATELET VOLUME 9.5 fL (7.4-11.4); MONOCYTES # (AUTO) 0.9 10^3/uL (0.0-1.0); MONOCYTES % (AUTO) 11.1 %; NEUTROPHILS # (AUTO) 4.9 10^3/uL (1.5-6.6); NEUTROPHILS % (AUTO) 58.2 %; PLT - PLATELET COUNT 182 10^3/uL (130-450); RED BLOOD COUNT 4.53 10^6/uL (4.70-6.10); RED CELL DISTRIBUTION WIDTH 14.9 % (12.0-15.0); WHITE BLOOD COUNT 8.5 x10^3/uL (4.8-10.8)
[2018-10-06 19:23] LABS: ALBUMIN 4.1 g/dL (3.2-5.5); ALBUMIN/GLOBULIN RATIO 1.2 (1.0-2.2); BILIRUBIN,TOTAL 0.7 mg/dL (0.2-1.0); CALCIUM 9.7 mg/dL (8.5-10.3); CREATININE 1.1 mg/dL (0.6-1.2); TOTAL PROTEIN 7.5 g/dL (6.7-8.2)
== END 2018-10-06 12:36 | disposition home or self-care (01) ==
LOC: LAB.WCP 12:35
PROVIDERS: ATTEND Physician Assistant Medical
DX: R05 Cough (principal)
CPT/HCPCS: 36415; 80053; 85025

== ENCOUNTER 2018-10-08 17:07 | Emergency (ER) | payer MEDICARE, OTHER ==
[2018-10-08] MEDS ORDERED: HYDROcod/ACETAM 5/325 MG TABLET PO STA (17:15)
[2018-10-08] MEDS ORDERED: IBUPROFEN 800 MG TABLET PO STA (17:15)
--- NOTE | 2018-10-08 17:18 | ED Physician Documentation ---
PD HPI NECK PAIN - Stated complaint Stated Complaint: R SHOULDER PX - History obtained from History obtained from: Patient - History of Present Illness Timing - onset: Other (He is been dealing with right-sided neck and shoulder pain for a few weeks. It was pretty bad at times and got only brief relief with physical therapy. The last few days has had a cough and was being treated with Zithromax for presumptive pneumonia by his PCP. Today he started to develop shaking chills around 3 PM with severe body aches and increase in sputum.) Review of Systems Constitutional: reports: Fever, Chills, Myalgias, Sweats Nose: denies: Rhinorrhea / runny nose, Congestion Cardiac: denies: Chest pain / pressure, Palpitations Respiratory: reports: Dyspnea, Cough PD PAST MEDICAL HISTORY - Past Medical History Cardiovascular: Congestive heart failure, Hypertension, High cholesterol, Atrial fibrillation Respiratory: Asthma, Sleep apnea (Uses BiPaP) Neuro: CVA (2010 mild expressive aphasia) Endocrine/Autoimmune: Type 2 diabetes GI: Other : Kidney stones (History of kidney stones) HEENT: Chronic vision loss, Chronic hearing loss Psych: Post traumatic stress disorder Musculoskeletal: Osteoarthritis Derm: None - Past Surgical History Past Surgical History: Yes General: Colonoscopy Ortho: Rotator cuff repair, Shoulder arthroplasty, Carpal Tunnel surgery, Spine surgery (Cervical and Lumbar), Other - Present Medications Home Medications: Ambulatory Orders Medication Instructions Recorded Confirmed Cyanocobalamin (Vitamin B-12) 1,200 mg PO DAILY 06/22/15 10/08/18 [Vitamin B12] Fluticasone [Flonase] 1 spray NS BID 06/22/15 10/08/18 Insulin Glargine,Hum.rec.anlog 70 units SQ QPM 06/22/15 10/08/18 [Lantus] Insulin Regular Human [NovoLIN R] 30 units SQ TIDWM 06/22/15 10/08/18 Lisinopril 20 mg PO BID 06/22/15 10/08/18 Loratadine [Claritin] 1 tab PO DAILY 06/22/15 10/08/18 Metoprolol Tartrate [Lopressor] 50 mg PO BID 06/22/15 10/08/18 Albuterol Sulfate [Proair Hfa 2 puffs INH Q4H PRN 06/17/18 10/08/18 Inhaler] Amlodipine Besylate 5 mg PO DAILY 06/17/18 10/08/18 Apixaban [Eliquis] 5 mg PO BID 06/17/18 10/08/18 Atorvastatin Calcium 80 mg PO QPM 06/17/18 10/08/18 Cholecalciferol (Vitamin D3) 5,000 unit PO BID 06/17/18 10/08/18 [Vitamin D3] Fenofibrate 160 mg PO DAILY 06/17/18 10/08/18 Fluticasone/Salmeterol [Advair 1 each IH BID 06/17/18 10/08/18 250-50 Diskus] Magnesium Oxide [Magnesium] 400 mg PO DAILY 06/17/18 10/08/18 Montelukast [Singulair] 10 mg PO DAILY 06/17/18 10/08/18 Cyclobenzaprine [Flexeril] 10 mg PO TID PRN #20 tablet 10/08/18 Doxycycline Hyclate 100 mg PO BID #20 capsule 10/08/18 Hydrocodone/Acetaminophen 1 - 2 each PO Q6H PRN #14 tablet 10/08/18 [Hydrocodon-Acetaminophen 5-325] buPROPion [Wellbutrin Sr] 150 mg PO BID 10/08/18 10/08/18 - Allergies Allergies/Adverse Reactions: Allergies Allergy/AdvReac Type Severity Reaction Status Date / Time amoxicillin trihydrate * Allergy severe Verified 06/17/18 10:58 [From Augmentin] diarrhea crab Allergy Rash Verified 06/17/18 10:58 potassium clavulanate * Allergy Unknown Verified 03/23/18 11:43 [From Augmentin] pseudoephedrine HCl * Allergy Anaphylaxis Verified 03/23/18 11:43 [From Sudafed] - Social History Does the pt smoke?: No Smoking Status: Former smoker (Quit 1982) Does the pt drink ETOH?: Yes Does the pt have substance abuse?: No - Immunizations Immunizations are current?: Yes - POLST Patient has POLST: No PD ED PE NORMAL - Vitals Vital signs reviewed: Yes - General General: Alert and oriented X 3 (He is rigoring) - HEENT HEENT: PERRL, Pharynx benign - Neck Neck: Supple, no meningeal sign, No bony TTP - Cardiac Cardiac: RRR, No murmur - Respiratory Respiratory: No respiratory distress, Clear bilaterally - Abdomen Abdomen: Non tender - Derm Derm: No rash - Neuro Neuro: Alert and oriented X 3, Normal speech - Psych Psych: Normal mood, Normal affect Results - Vitals Vitals: Vital Signs - 24 hr 10/08/18 10/08/18 10/08/18 17:09 17:37 18:09 Temperature 36.7 C Heart Rate 79 75 76 Respiratory 21 18 Rate Blood Pressure 148/70 H 147/77 H O2 Saturation 96 100 10/08/18 18:58 Temperature 38.1 C H Heart Rate 81 Respiratory 24 Rate Blood Pressure 145/66 H O2 Saturation 96 Oxygen O2 Source Room air - Labs Labs: Laboratory Tests 10/08/18 10/08/18 10/08/18 17:29 17:29 17:34 WBC 17.2 H RBC 5.03 Hgb 14.7 Hct 48.4 MCV 96.2 H MCH 29.3 MCHC 30.5 L RDW 15.3 H Plt Count 197 MPV 9.2 Neut # (Auto) 14.6 H Lymph # (Auto) 1.4 L Reynolds # (Auto) 0.9 Eos # (Auto) 0.0 Baso # (Auto) 0.2 H Absolute Nucleated RBC 0.01 Band Neuts % (Manual) Not Reportable Abnorm Lymph % (Manual) Not Reportable Nucleated RBC % 0.0 Neutrophils # (Manual) Not Reportable Lymphocytes # (Manual) Not Reportable Monocytes # (Manual) Not Reportable Eosinophils # (Manual) Not Reportable Basophils # (Manual) Not Reportable Differential Comment MANUAL=AUTO DIFF Manual Slide Review Indicated Platelet Estimate NORMAL (130-450,000) Platelet Morphology NORMAL APPEARANCE RBC Morph Micro Appear NORMAL APPEARANCE Sodium 135 Potassium 4.1 Chloride 99 L Carbon Dioxide 26 Anion Gap 10.0 BUN 16 Creatinine 1.2 Estimated GFR (MDRD) 60 L Glucose 154 H Calcium 9.4 Total Bilirubin 0.8 AST 26 ALT 27 Alkaline Phosphatase 53 Total Protein 8.1 Albumin 4.5 Globulin 3.6 Albumin/Globulin Ratio 1.3 Lipase 30 Influenza A (Rapid) Negative Influenza B (Rapid) Negative PD MEDICAL DECISION MAKING - ED course ED course: This is a 73-year-old gentleman has been dealing with neck pain for a few weeks and now has more acute respiratory illness with Rigors and fevers. He does have a white count but a clear chest x-ray. Otherwise his workup was negative. His coverage was broadened to doxycycline and he did need some pain medication. Departure - Departure Disposition: 01 Home, Self Care Clinical Impression: Bronchitis, Neck pain Condition: Good Record reviewed to determine appropriate education?: Yes Instructions: ED Bronchitis Asthmatic Prescriptions: Cyclobenzaprine [Flexeril] 10 mg PO TID PRN #20 tablet PRN Reason: Spasms Doxycycline Hyclate 100 mg PO BID #20 capsule Hydrocodone/Acetaminophen [Hydrocodon-Acetaminophen 5-325] 1 - 2 each PO Q6H PRN #14 tablet PRN Reason: pain Comments: Call your doctor to arrange a follow-up appointment, make the next available appointment. In the interim, return anytime if worse or if new symptoms develop. Your blood pressure was elevated today on check into the emergency department. This does not mean that you have hypertension, it is a common phenomenon to come to the emergency department and have elevated blood pressure. I recommend that you see your primary care physician within the week to have it rechecked when you are feeling better.
[2018-10-08 17:34] LABS: BASOPHILS # (AUTO) 0.2 10^3/uL (0.0-0.1); HGB - HEMOGLOBIN 14.7 g/dL (14.0-18.0); PLT - PLATELET COUNT 197 10^3/uL (130-450)
[2018-10-08 17:39] LABS: BASOPHILS % (AUTO) 1.3 %; EOSINOPHILS % (AUTO) 0.2 %; LYMPHOCYTES # (AUTO) 1.4 10^3/uL (1.5-3.5); LYMPHOCYTES % (AUTO) 8.3 %; MEAN CORPUSCULAR HEMOGLOBIN 29.3 pg (27.0-31.0); MEAN CORPUSCULAR HGB CONC 30.5 g/dL (32.0-36.0); MEAN CORPUSCULAR VOLUME 96.2 fL (80.0-94.0); MEAN PLATELET VOLUME 9.2 fL (7.4-11.4); MONOCYTES # (AUTO) 0.9 10^3/uL (0.0-1.0); MONOCYTES % (AUTO) 5.2 %; NEUTROPHILS # (AUTO) 14.6 10^3/uL (1.5-6.6); RED BLOOD COUNT 5.03 10^6/uL (4.70-6.10); RED CELL DISTRIBUTION WIDTH 15.3 % (12.0-15.0); WHITE BLOOD COUNT 17.2 x10^3/uL (4.8-10.8)
[2018-10-08 17:47] LABS: ALBUMIN 4.5 g/dL (3.2-5.5); ALBUMIN/GLOBULIN RATIO 1.3 (1.0-2.2); BILIRUBIN,TOTAL 0.8 mg/dL (0.2-1.0); CALCIUM 9.4 mg/dL (8.5-10.3); CREATININE 1.2 mg/dL (0.6-1.2); TOTAL PROTEIN 8.1 g/dL (6.7-8.2)
[2018-10-08 18:04] LABS: PLATELET ESTIMATE, MANUAL NORMAL (130-450,000) (NORMAL); PLATELET MORPHOLOGY NORMAL APPEARANCE (NORMAL); RBC MORPHOLOGY (MULTIPLE) NORMAL APPEARANCE (NORMAL)
[2018-10-08 18:05] LABS: DIFFERENTIAL COMMENT MANUAL=AUTO DIFF
[2018-10-08] MEDS ORDERED: oxyCODONE 5 MG TABLET PO STA (18:50)
--- NOTE | 2018-10-08 18:57 | XRAY Report ---
Reason: cough Procedure Date: 10/08/2018 Accession Number: [id number] / [id number] Procedure: XR - Chest 2 View X-Ray CPT Code: 55688 FULL RESULT: EXAM: CHEST RADIOGRAPHY EXAM DATE: 10/08/2018 06:11 PM. CLINICAL HISTORY: Cough. COMPARISON: CHEST 2 VIEW 10/06/2018 11:59 AM. TECHNIQUE: 2 views. FINDINGS: Lungs/Pleura: No focal opacities evident. No pleural effusion. No pneumothorax. Normal volumes. Mediastinum: Normal heart size. Trachea is midline. Other: None. IMPRESSION: Negative for an acute cardiopulmonary abnormality. RADIA
--- NOTE | 2018-10-08 19:00 | XRAY Report ---
Reason: neck pain Procedure Date: 10/08/2018 Accession Number: [id number] / [id number] Procedure: XR - Cervical Spine 2 View CPT Code: FULL RESULT: EXAM: CERVICAL SPINE RADIOGRAPHY EXAM DATE: 10/08/2018 06:11 PM. CLINICAL HISTORY: Neck pain. COMPARISONS: CERVICAL SPINE COMPLETE 02/22/2015 3:34 PM. TECHNIQUE: 3 views. FINDINGS: Alignment: The alignment appears satisfactory from skull base to C6 on the lateral image. C7 and T1 are not seen on the lateral image. No subluxation or scoliosis. Bones: The vertebral bodies appear intact without fracture to C6. There are anterior disk osteophyte spurs. Disks: Disk height appears maintained. There are moderate anterior disk osteophyte spurs at C5-C6. Facets: Satisfactory alignment. Soft Tissues: Prevertebral soft tissues within normal limits. There are bilateral carotid vascular calcifications. IMPRESSION: 1. Negative for acute fracture and subluxation. Limited visualization of the cervical spine on lateral imaging with C7 and T1 not seen. RADIA
[2018-10-08 19:03] VITALS: BP 145/66
[2018-10-08] MEDS ORDERED: ACETAMINOPHEN 325 MG TABLET PO STA (19:06)
[2018-10-08] MEDS ORDERED: CYCLOBENZAPRINE 10 MG TABLET PO STA (19:14)
[2018-10-08] MEDS ORDERED: DOXYCYCLINE 100 MG TABLET PO STA (19:14)
== END 2018-10-08 19:26 | disposition home or self-care (01) ==
LOC: EDUNIT# → ED 17:07
DX: J40 Bronchitis, not specified as acute or chronic (principal); M54.2 Cervicalgia; I11.0 Hypertensive heart disease with heart failure; I50.9 Heart failure, unspecified; E78.00 Pure hypercholesterolemia, unspecified; E11.9 Type 2 diabetes mellitus without complications; Z79.4 Long term (current) use of insulin; I69.920 Aphasia following unspecified cerebrovascular disease
CPT/HCPCS: 36415; 71046; 72040; 80053; 83690; 85025; 87275; 87276; 99283; A9270

== ENCOUNTER 2018-10-08 20:11 | Outpatient (CLI) | payer MEDICARE, OTHER | END 2018-10-08 20:12 | disposition critical access hospital (66) | LOC: EMS 20:11 | PROVIDERS: ATTEND Surgery | DX: M25.511 Pain in right shoulder (principal) | CPT/HCPCS: A0425; A0429 ==

== ENCOUNTER 2018-10-10 10:13 | Outpatient (CLI) | payer MEDICARE, OTHER ==
[2018-10-10 10:47] LABS: BASOPHILS % (AUTO) 0.3 %; EOSINOPHILS # (AUTO) 0.1 10^3/uL (0.0-0.7); EOSINOPHILS % (AUTO) 0.7 %; HGB - HEMOGLOBIN 12.9 g/dL (14.0-18.0); LYMPHOCYTES # (AUTO) 1.9 10^3/uL (1.5-3.5); LYMPHOCYTES % (AUTO) 16.9 %; MEAN CORPUSCULAR HGB CONC 32.7 g/dL (32.0-36.0); MEAN CORPUSCULAR VOLUME 91.7 fL (80.0-94.0); MEAN PLATELET VOLUME 8.4 fL (7.4-11.4); MONOCYTES # (AUTO) 1.1 10^3/uL (0.0-1.0); MONOCYTES % (AUTO) 9.5 %; NEUTROPHILS # (AUTO) 8.2 10^3/uL (1.5-6.6); NEUTROPHILS % (AUTO) 72.6 %; PLT - PLATELET COUNT 173 10^3/uL (130-450); RED BLOOD COUNT 4.31 10^6/uL (4.70-6.10); RED CELL DISTRIBUTION WIDTH 14.8 % (12.0-15.0); WHITE BLOOD COUNT 11.4 x10^3/uL (4.8-10.8)
[2018-10-10 10:59] LABS: ALBUMIN 3.9 g/dL (3.2-5.5); ALBUMIN/GLOBULIN RATIO 1.1 (1.0-2.2); BILIRUBIN,TOTAL 0.8 mg/dL (0.2-1.0); CALCIUM 9.2 mg/dL (8.5-10.3); CREATININE 1.1 mg/dL (0.6-1.2); TOTAL PROTEIN 7.4 g/dL (6.7-8.2)
== END 2018-10-10 10:14 | disposition home or self-care (01) ==
LOC: DI 10:13
PROVIDERS: ATTEND Family Medicine
DX: R05 Cough (principal)
CPT/HCPCS: 36415; 80053; 85025

== ENCOUNTER 2018-11-30 08:00 | Outpatient (CLI) | payer MEDICARE, OTHER ==
[2018-11-30 12:29] LABS: BASOPHILS % (AUTO) 0.8 %; EOSINOPHILS # (AUTO) 0.1 10^3/uL (0.0-0.7); EOSINOPHILS % (AUTO) 2.1 %; HGB - HEMOGLOBIN 14.7 g/dL (14.0-18.0); LYMPHOCYTES # (AUTO) 2.2 10^3/uL (1.5-3.5); LYMPHOCYTES % (AUTO) 35.7 %; MEAN CORPUSCULAR HEMOGLOBIN 29.8 pg (27.0-31.0); MEAN CORPUSCULAR HGB CONC 32.4 g/dL (32.0-36.0); MEAN PLATELET VOLUME 9.8 fL (7.4-11.4); MONOCYTES # (AUTO) 0.7 10^3/uL (0.0-1.0); MONOCYTES % (AUTO) 11.9 %; NEUTROPHILS % (AUTO) 49.5 %; PLT - PLATELET COUNT 153 10^3/uL (130-450); RED BLOOD COUNT 4.91 10^6/uL (4.70-6.10); WHITE BLOOD COUNT 6.1 x10^3/uL (4.8-10.8)
[2018-11-30 13:10] LABS: ALBUMIN 4.5 g/dL (3.2-5.5); ALBUMIN/GLOBULIN RATIO 1.6 (1.0-2.2); BILIRUBIN,TOTAL 0.8 mg/dL (0.2-1.0); CALCIUM 9.8 mg/dL (8.5-10.3); TOTAL PROTEIN 7.4 g/dL (6.7-8.2)
[2018-11-30 13:19] LABS: CREATININE,URINE 95.2 mg/dL; MICROALBUM/CREATININE RATIO,UR 5.3 ug/mg (<30.0); MICROALBUMIN,URINE 0.5 mg/dL (0-300.0)
[2018-11-30 13:22] LABS: CHOL/HDL RATIO 3.4 (<5.0); CHOLESTEROL 155 mg/dL; CK- CREATINE KINASE 152 IU/L (22-269); HDL CHOLESTEROL 45 mg/dL; LDL CHOLESTEROL,CALCULATED 87 mg/dL; LDL CHOLESTEROL,DIRECT 103 mg/dL; LDL/HDL RATIO 1.9 (<3.6); PHOSPHORUS 3.2 mg/dL (2.5-4.6); VLDL CHOLESTEROL 23 mg/dL
[2018-11-30 13:28] LABS: HB2 TOTAL 15.9 g/dL; HEMOGLOBIN A1C 0.78 g/dL; HEMOGLOBIN A1C % 6.6 % (4.6-6.2)
== END 2018-11-30 23:59 | disposition home or self-care (01) ==
LOC: LAB.WCP 08:00
PROVIDERS: ATTEND Internal Medicine Cardiovascular Disease
DX: I48.0 Paroxysmal atrial fibrillation (principal); E78.5 Hyperlipidemia, unspecified; E11.9 Type 2 diabetes mellitus without complications; I25.10 Atherosclerotic heart disease of native coronary artery without angina pectoris; G47.33 Obstructive sleep apnea (adult) (pediatric)
CPT/HCPCS: 36415; 80053; 80061; 82043; 82550; 82570; 83036; 83721; 84100; 84443; 85025

== ENCOUNTER 2019-04-01 08:16 | Outpatient (CLI) | payer MEDICARE, OTHER ==
[2019-04-01 09:17] VITALS: BP 140/70
--- NOTE | 2019-04-01 09:17 | SLEEP CARE CONSULTATION ---
Information from patient questionnaire entered by Maryan Morrison. I have reviewed and concur with the information entered by Maryan Morrison. This document represents the service I personally performed and the decisions made by me, Maryjane Saucedo, RN, MSN, BAND MANAGER. History of Present Illness Previous diagnosis: Mild, Obstructive Sleep Apnea-Hypopnea Syndrome AHI: 11.7 Reason for CPAP/BiPAP follow up: annual Equipment type: BiPAP Equipment obtained from: [employer] (Patient is having difficulty obtaining supplies. Orders are requested and not filled. Phone calls are not answered.) Mask style: Full face Mask brand: Respironics Backup mask available: Yes Last cushion change: about 6 weeks ago HPI additional information: Changes in medical history since last seen is cervical fusion of C3-7 with much less pain. He also had a bone removed from left hand with carpal for relief of pain. He uses a bone stimulator around neck twice a day to improve healing process. CPAP Compliance Data - Data Reviewed with Patient Average duration of nightly device use: 7.5 Compliance rate %: 98.3 (180 days) Current pressure setting (cmH2O): 21/13 Humidity settin Heated hose settin Average residual AHI: 0.8 Average large leak: 27 secs Subjective Patient concerns: reports: mask discomfort, dry mouth, nose, throat (patient has had dry mouth day and night and worse in morning. ). denies: aerophagia (nasal bridge soreness and just started using a bandaid for protection. It is at same site where both mask and glasses sit. ), air blowing in eyes, mask leak noise, condensation in mask/hose, nasal congestion, epistaxis Observed to snore while using device: Yes (Just recent snoring noted by spouse especially on his back. ) On therapy, patient: reports: sleeping better, awakening more refreshed, being more awake and alert during the day, more rested overall. denies: drowsiness while driving Initial Clemons Sleepiness Scale score: 15 Current Clemons Sleepiness Scale score: 3 Review of Systems Review of systems same as previous: Yes Cardiovascular: reports: high blood pressure Respiratory: reports: shortness of breath Urinary: reports: frequency Neurological: reports: headaches, speech dysfunction (history of a stroke) Psychiatric: reports: depression Ear/Nose/Throat: reports: nasal congestion, sinus problems, dry mouth/throat, wisdom teeth removed Endocrine: reports: other: (no longer feeling sluggish as shown on Clemons) Musculoskeletal: reports: joint pain, neck pain, back pain Immunologic: reports: sneezing, allergies to food or environment Allergies and Home Medications Known drug allergies: Yes (sudafed, augmentin ) Home medication list reviewed: Yes Allergy and home medication list: Lopressor 50mg tab one BID Claritin 10mg tab one daily Lisinopril 20mg tab one BID Lantus 100UNIT/ML Inject 70-74 units SQ daily at bedtime Triglide 150mg tab one daily Fluticasone Propionate 50MCG/ACT Use one spray each nostril BID Novolog 100UNIT;ML Inject 30units prior to each meal Vitamin B-12 1000mcg tab one daily Vitamin D 2000unit cap twice daily Cialis 80mg tab one eyer 72 hours Simvastatin 40mg tab one daily at bedtime Eliquis 5mg tab one BID Ipratropium-Albuterol 0.5-2.5MG/3ML Use one ampule in nebulizer QID prn Advair Diskus 250-50 MCG/DOSE Use one inhalation BID Diclofenac Sodium 1% transdermal gel Apply 2-4 grams TID PRN Bupropion unknown dose tab Twice daily Flonase One spray twice daily Rescue Inhaler Prn exercise Physical Exam Blood Pressure: 140/70 Cuff size: long Heart Rate: 58 O2 Saturation: 97 Weight (kg): 104.326 kg (lost 2 pounds) Impression and Plan 1. Obstructive Sleep Apnea-Hypopnea Syndrome, mild , with good treatment compliance and good apnea control. On BiPAP therapy, there is improved sleep quality and continues to feel more rested overall. For patient concerns about supplies, I informed him that he could transfer to another company. He would like to speak to someone to order as his computer is not functioning well. I will have grievance coordinator inform him of his options. If continued problems with supplies, he can transfer again. A O prescription will be made. For oral dryness, his heated hose was found at 5 and not usual 1. This occurred during hospitalization and patient unaware as noted on compliance report. Thus I inst ructed him how to change settings of heated hose back to one on sample device. If continued oral dryness he is to increase humidity . He has tried Biotene with no benefit so I advised him to try xylimelts or Smart mouth rinse and to discuss with his dentist. For nasal bridge soreness, I advised him to use the bandaid until as a protective barrier until he is able to get new Air Touch cushion I showed him that will fit his mask frame. For his mild snoring supine, I could raise his pressure but patient declined. It is hoped that a new mask style will fit better and reduce snoring. He is also advised to make sure he changes the new cushion monthly as it is memory foam and will wear down with longer use. Patient's apnea severity and rationale for treatment to reduce apnea, improve sleep quality and reduce cardiovascular and cerebrovascular events was reviewed. I also reviewed the benefit of consistent device use of CPAPBIPAP for hypertension, cerebrovascular disease, diabetes, depression/anxiety. PLan Continue BiPAP pressure at 21/13 cm H2O. Transfer of Care to [facility] Change mask cushion from Air Fit to Air Touch Continue to use bandaid barrier as instructed Adjust heated hose Consider options for oral dryness Follow up with dentist as discussed. Notify me if snoring with the mask or feeling that the pressure is too much or too little. Return for follow-up in one year, or sooner if concerns arise. I spent 100% of this 35 minute visit face to face with the patient with greater than 50% of this was spent time counseling the patient and coordination of care.
== END 2019-04-01 08:17 | disposition home or self-care (01) ==
LOC: SC 08:16
PROVIDERS: ATTEND Nurse Practitioner Family
DX: G47.33 Obstructive sleep apnea (adult) (pediatric) (principal)
CPT/HCPCS: 99214; G0463; 99212

== ENCOUNTER 2019-05-05 08:00 | Outpatient (CLI) | payer MEDICARE, OTHER ==
[2019-05-05 12:39] LABS: CALCIUM 9.3 mg/dL (8.5-10.3); CREATININE 1.3 mg/dL (0.6-1.2)
[2019-05-05 13:08] LABS: HB2 TOTAL 14.4 g/dL; HEMOGLOBIN A1C 0.68 g/dL; HEMOGLOBIN A1C % 6.5 % (4.6-6.2)
== END 2019-05-05 23:59 | disposition home or self-care (01) ==
LOC: LAB.WCP 08:00
PROVIDERS: ATTEND Family Medicine
DX: E11.9 Type 2 diabetes mellitus without complications (principal)
CPT/HCPCS: 36415; 80048; 83036

== ENCOUNTER 2019-07-13 14:20 | Outpatient (CLI) | payer MEDICARE, OTHER ==
--- NOTE | 2019-07-14 14:01 | XRAY Report ---
Reason: COUGH Procedure Date: 07/13/2019 Accession Number: [id number] / [id number] Procedure: WCP - Chest 2 View X-Ray CPT Code: 80494 Final Report FULL RESULT: EXAM: CHEST RADIOGRAPHY EXAM DATE: 07/13/2019 02:46 PM HISTORY: COUGH COMPARISON: CHEST 2 VIEW 10/08/2018 6:11 PM TECHNIQUE: Two Views FINDINGS: Lungs/Pleura: The lungs are clear. No consolidation, edema or pleural effusion. Cardiomediastinal silhouette: Unremarkable accounting for technique. Other: None. IMPRESSION: Normal two view chest. RADIA
== END 2019-07-13 23:59 | disposition home or self-care (01) ==
LOC: DI.WCP 14:20
PROVIDERS: ATTEND Nurse Practitioner Family
DX: R05 Cough (principal)
CPT/HCPCS: 71046

== ENCOUNTER 2019-10-14 07:09 | Outpatient (CLI) | payer MEDICARE, OTHER ==
[2019-10-14 12:11] LABS: HGB - HEMOGLOBIN 14.1 g/dL (14.0-18.0); MEAN CORPUSCULAR HEMOGLOBIN 29.3 pg (27.0-31.0); MEAN CORPUSCULAR HGB CONC 31.5 g/dL (32.0-36.0); MEAN CORPUSCULAR VOLUME 92.9 fL (80.0-94.0); MEAN PLATELET VOLUME 11.8 fL (7.4-11.4); RED BLOOD COUNT 4.81 10^6/uL (4.70-6.10); RED CELL DISTRIBUTION WIDTH 14.5 % (12.0-15.0); WHITE BLOOD COUNT 6.6 x10^3/uL (4.8-10.8)
[2019-10-14 12:39] LABS: ALBUMIN 4.3 g/dL (3.2-5.5); CALCIUM 9.2 mg/dL (8.5-10.3); CREATININE 1.3 mg/dL (0.6-1.2); PHOSPHORUS 3.7 mg/dL (2.5-4.6)
== END 2019-10-14 23:59 | disposition home or self-care (01) ==
LOC: LAB.WCP 07:09
PROVIDERS: ATTEND Internal Medicine Cardiovascular Disease
DX: I48.91 Unspecified atrial fibrillation (principal); I10 Essential (primary) hypertension; I25.10 Atherosclerotic heart disease of native coronary artery without angina pectoris; E78.5 Hyperlipidemia, unspecified
CPT/HCPCS: 36415; 80069; 85027

== ENCOUNTER 2019-10-26 10:41 | Outpatient (CLI) | payer MEDICARE, OTHER ==
--- NOTE | 2019-10-26 13:56 | XRAY Report ---
Reason: COUGH Procedure Date: 10/26/2019 Accession Number: [id number] / [id number] Procedure: WCP - Chest 2 View X-Ray CPT Code: 45054 Final Report FULL RESULT: EXAM: CHEST RADIOGRAPHY EXAM DATE: 10/26/2019 10:41 AM. CLINICAL HISTORY: Cough. COMPARISON: Chest radiograph from 07/13/2019. TECHNIQUE: 2 views. FINDINGS: Lungs/Pleura: No focal airspace opacities. No pleural effusion or pneumothorax. Mediastinum: There is borderline enlargement of the cardiac silhouette. Mediastinal contour and pulmonary vasculature are within normal limits. Other: Multilevel degenerative changes are present in the thoracic spine. IMPRESSION: No acute cardiopulmonary abnormality. RADIA
== END 2019-10-26 23:59 | disposition home or self-care (01) ==
LOC: DI.WCP 10:41
PROVIDERS: ATTEND Nurse Practitioner Family
DX: R05 Cough (principal)
CPT/HCPCS: 71046

== ENCOUNTER 2019-12-24 10:26 | Outpatient (CLI) | payer MEDICARE, OTHER ==
--- NOTE | 2019-12-24 16:46 | CT Report ---
Reason: COUGH Procedure Date: 12/24/2019 Accession Number: [id number] / [id number] Procedure: CT - CHEST WO CPT Code: Final Report FULL RESULT: EXAM: CT CHEST EXAM DATE: 12/24/2019 10:41 AM. CLINICAL HISTORY: Cough. Pneumonia 8 weeks ago. Persistent cough. COMPARISONS: CHEST W/ 09/06/2017 1:18 PM CHEST 2 VIEW 10/26/2019 10:14 AM CHEST 2 VIEW 07/13/2019 2:20 PM. TECHNIQUE: Routine helical CT imaging was performed through the chest. IV contrast: None. Reconstructions: Coronal and sagittal. In accordance with CT protocol optimization, one or more of the following dose reduction techniques were utilized for this exam: automated exposure control, adjustment of mA and/or KV based on patient size, or use of iterative reconstructive technique. FINDINGS: Lungs/Pleura: No endobronchial obstruction. No pneumothorax. No pleural effusions. Mucus/fluid present within the distal right mainstem bronchus. Right middle lobe, lingular and bibasilar scar/atelectasis. No significant subpleural reticulation. No signal and bronchiectasis or bronchial thickening. 2 mm nodule inferior right upper lobe image 163, series 4, stable. 3 mm nodular opacity posterior lateral left upper lobe image 110, series 4, stable. No new nodules are identified. Mediastinum: Heart size upper normal. Aortic valve calcifications. Trace pericardial effusion. Small hiatal hernia. Moderate to marked coronary calcified plaque. Visualized thyroid gland appears small. No enlarged mediastinal or hilar lymph nodes are identified. Bones: Degenerative changes of the thoracic spine. No acute osseous abnormalities. Mild degenerative changes of both shoulders. Visualized Abdomen: Mild degenerative changes at both shoulders. Other: Unenhanced images of the upper abdomen are unremarkable except for abdominal aortic atherosclerosis. IMPRESSION: 1. Bilateral lung nodules, stable compared to 09/06/2017. 2. No acute consolidation or significant bronchial dilatation. No evidence of interstitial lung disease. Focal mucus/fluid within the right mainstem bronchus distally. 3. No enlarged mediastinal hilar lymph nodes. 4. Coronary artery and thoracic aortic atherosclerosis. Aortic valve opacifications which can be seen with aortic valve disease. RADIA
== END 2019-12-24 10:27 | disposition home or self-care (01) ==
LOC: DI 10:26
PROVIDERS: ATTEND Family Medicine
DX: R91.8 Other nonspecific abnormal finding of lung field (principal); J98.09 Other diseases of bronchus, not elsewhere classified; I25.10 Atherosclerotic heart disease of native coronary artery without angina pectoris; I70.0 Atherosclerosis of aorta
CPT/HCPCS: 71250

== ENCOUNTER 2020-01-05 07:38 | Outpatient (CLI) | payer MEDICARE, OTHER | END 2020-01-05 07:39 | disposition home or self-care (01) | LOC: DI 07:38 | PROVIDERS: ATTEND Family Medicine | DX: R06.09 Other forms of dyspnea (principal); I51.7 Cardiomegaly | CPT/HCPCS: 93306 ==

== ENCOUNTER 2020-01-10 08:00 | Outpatient (CLI) | payer MEDICARE, OTHER ==
[2020-01-10 13:51] LABS: HGB - HEMOGLOBIN 13.9 g/dL (14.0-18.0); MEAN CORPUSCULAR HEMOGLOBIN 30.5 pg (27.0-31.0); MEAN CORPUSCULAR HGB CONC 31.9 g/dL (32.0-36.0); MEAN CORPUSCULAR VOLUME 95.8 fL (80.0-94.0); MEAN PLATELET VOLUME 11.8 fL (7.4-11.4); RED BLOOD COUNT 4.55 10^6/uL (4.70-6.10); RED CELL DISTRIBUTION WIDTH 14.9 % (12.0-15.0); WHITE BLOOD COUNT 7.1 x10^3/uL (4.8-10.8)
[2020-01-10 14:32] LABS: BUN - BLOOD UREA NITROGEN 24 mg/dL (6-20); CALCIUM 9.2 mg/dL (8.5-10.3); CARBON DIOXIDE - CO2 24 mmol/L (21-32); CHLORIDE 106 mmol/L (101-111); CHOLESTEROL 116 mg/dL; CREATININE 1.5 mg/dL (0.6-1.2); GLUCOSE 157 mg/dL (70-100); HDL CHOLESTEROL 39 mg/dL; LDL CHOLESTEROL,CALCULATED 60 mg/dL; LDL/HDL RATIO 1.5 (<3.6); SODIUM 139 mmol/L (135-145); VLDL CHOLESTEROL 17 mg/dL
[2020-01-10 14:49] LABS: HB2 TOTAL 14.3 g/dL; HEMOGLOBIN A1C 0.7 g/dL; HEMOGLOBIN A1C % 6.6 % (4.6-6.2)
== END 2020-01-10 23:59 | disposition home or self-care (01) ==
LOC: LAB.WCP 08:00
PROVIDERS: ATTEND Family Medicine
DX: E11.9 Type 2 diabetes mellitus without complications (principal); R06.09 Other forms of dyspnea
CPT/HCPCS: 36415; 80048; 80061; 83036; 83721; 83880; 85027

== ENCOUNTER 2020-04-07 10:00 | Outpatient (CLI) | payer MEDICARE, OTHER | END 2020-04-07 10:01 | disposition home or self-care (01) | LOC: COV 10:00 | PROVIDERS: ATTEND Ophthalmology | DX: Z01.818 Encounter for other preprocedural examination (principal); H25.12 Age-related nuclear cataract, left eye; Z20.828 Contact with and (suspected) exposure to other viral communicable diseases ==

== ENCOUNTER 2020-04-13 06:21 | Day surgery (SDC) | payer MEDICARE, OTHER ==
[~2020-04-13 06:21] MED LIST changes: -BUPIVACAINE 0.25% PF 30 ML VIAL ONE; -CLINDAMYCIN 600 MG/50 ML 50 ML IV ONE; +CYCLOPENTOLATE 1% OPHTH DROPS 2 ML ONE; +KETOROLAC 0.45% OPHTH DROPS ONE; +PHENYLEPHRINE 2.5% OPHTH 2 ML DROPS ONE; +PROPARACAINE 0.5% OPHTH DROPS 15 ML ONE
[2020-04-13] MEDS ORDERED: LACTATED RINGERS 1,000 ML IV ONE ×2 (06:29→07:44)
[2020-04-13] MEDS ORDERED: EPINEPHrine 1 MG/ML AMP ONE (06:44)
[2020-04-13] MEDS ORDERED: TRIAMCIN/MOXIFLOX OPHTHALMIC 0.6 ML VIAL IO ONE ×2 (06:44→07:30)
[2020-04-13] MEDS ORDERED: VANCOMYCIN OPHTHALMI 8MG/0.8ML 8 MG/0.8 ML SYRINGE IO ONE ×2 (06:45→07:31)
[2020-04-13] MEDS ORDERED: BSS/LIDOCAINE/EPINEPHRINE 1 ML SYRINGE ONE (06:45)
[2020-04-13] MEDS ORDERED: BRIMONIDINE 0.2% OPHTH DROPS 5 ML ONE (06:45)
[2020-04-13] MEDS ORDERED: TIMOLOL 0.5% OPHTH DROPS ONE (06:45)
--- NOTE | 2020-04-13 07:15 | ANESTHESIA ---
Pre-Anesthesia VS, & Labs - Diagnosis Left eye nuclear sclerotic cataract - Procedure left eye cataract extraction with IOL Vital Signs: Temp Pulse Resp BP Pulse Ox 36.1 C L 59 L 16 146/61 H 95 04/13/20 06:39 04/13/20 06:39 04/13/20 06:39 04/13/20 06:39 04/13/20 06:39 Height 5 ft 7 in Weight (kg) 104 kg Body Mass Index 34.4 - NPO >8 hours - Lab Results Current Lab Results: Laboratory Tests 04/13/20 06:43: POC Whole Bld Glucose 173 H Home Medications and Allergies Fluticasone [Flonase] 1 spray NS BID 06/22/15 Insulin Glargine,Hum.rec.anlog [Lantus] 70 units SQ QPM 06/22/15 Insulin Regular Human [NovoLIN R] 30 units SQ TIDWM 06/22/15 Lisinopril 20 mg PO BID 06/22/15 Loratadine [Claritin] 1 tab PO DAILY 06/22/15 Metoprolol Tartrate [Lopressor] 50 mg PO BID 06/22/15 Albuterol Sulfate [Proair Hfa Inhaler] 2 puffs INH Q4H PRN 06/17/18 Amlodipine Besylate 5 mg PO DAILY 06/17/18 Apixaban [Eliquis] 5 mg PO BID 06/17/18 Atorvastatin Calcium 80 mg PO QPM 06/17/18 Cholecalciferol (Vitamin D3) [Vitamin D3] 5,000 unit PO BID 06/17/18 Fenofibrate 145 mg PO DAILY 06/17/18 Fluticasone/Salmeterol [Advair 250-50 Diskus] 1 each IH BID 06/17/18 Montelukast [Singulair] 10 mg PO DAILY 06/17/18 buPROPion [Wellbutrin Sr] 150 mg PO BID 10/08/18 Allergies/Adverse Reactions: Allergies Allergy/AdvReac Type Severity Reaction Status Date / Time amoxicillin trihydrate * Allergy severe Verified 06/17/18 10:58 [From Augmentin] diarrhea crab Allergy Rash Verified 06/17/18 10:58 potassium clavulanate * Allergy Unknown Verified 03/23/18 11:43 [From Augmentin] pseudoephedrine HCl * Allergy Anaphylaxis Verified 03/23/18 11:43 [From Sudafed] Anes History & Medical History - Anesthetic History Anesthesia Complications: reports: No previous complications - Medical History Cardiovascular: reports: Congestive heart failure, Hypertension, High cholesterol, Coronary artery disease, Atrial fibrillation Pulmonary: reports: Asthma, COPD, Sleep apnea, CPAP use Gastrointestinal: reports: Colon polyps, Diverticulitis, Other Urinary: reports: Kidney stones, Other Neuro: reports: CVA (2010 mild expressive aphasia.) Musculoskeletal: reports: Osteoarthritis, Chronic back pain Endocrine/Autoimmune: reports: Type 2 diabetes Blood Disorders: reports: None Skin: reports: None Smoking Status: Former smoker (Quit 1982) Psychosocial: reports: Depression, Other (PTSD) - Surgical History General: Colonoscopy Orthopedic: Rotator cuff repair, Shoulder arthroplasty, Carpal Tunnel surgery, Spine surgery, Other Exam General: Alert, Oriented x3, Cooperative, No acute distress Dental: WNL Mouth Openin Fingerbreadth Neck Mobility: Normal Mallampati classification: III Thyromental Distance: 4-6 cm Respiratory: Lungs clear, Normal breath sounds, No respiratory distress, No accessory muscle use Cardiovascular: Regular rate, Normal S1, Normal S2 Mental/Cognitive Status: Alert/Oriented X3, Normal for patient Plan Anesthesia Type: MAC Consent for Procedure(s) Verified and Reviewed: Yes Code Status: Attempt Resuscitation ASA classification: 3-Severe systemic disease Is this case an emergency?: No
[2020-04-13] MEDS ORDERED: MIDAZOLAM 2 MG/2 ML VIAL IVP ONE (07:25)
[2020-04-13] MEDS ORDERED: BRIMONIDINE 0.2% OPHTH DROPS 5 ML OPTH ONE (07:28)
[2020-04-13] MEDS ORDERED: EPINEPHrine 1 MG/ML AMP IR ONE (07:28)
[2020-04-13] MEDS ORDERED: CHONDR SULF/HYALURONATE SYRINGE IO ONE (07:28)
[2020-04-13] MEDS ORDERED: TIMOLOL 0.5% OPHTH DROPS OPTH ONE (07:29)
[2020-04-13] MEDS ORDERED: BSS/LIDOCAINE/EPINEPHRINE 1 ML SYRINGE IO ONE (07:30)
[2020-04-13] MEDS ORDERED: PROPARACAINE 0.5% OPHTH DROPS 15 ML EACHEYE ONE (07:31)
[2020-04-13 08:02] VITALS: BP 122/59
--- NOTE | 2020-04-13 10:08 | PROCEDURE REPORT ---
DATE OF SERVICE: 04/13/2020 Physician: Eder Finch MD PREOPERATIVE DIAGNOSIS: Visually significant cataract, left eye. This was his first cataract surger y. POSTOPERATIVE DIAGNOSIS: Visually significant cataract, left eye. This was his first cataract surge ry. PROCEDURE: Phacoemulsification with posterior chamber intraocular lens implant, left eye. SURGEON: Eder Finch MD ANESTHESIA: Monitored anesthesia care. COMPLICATIONS: None. OPERATIVE INDICATIONS: This is a 74-year-old man with progressive vision loss in the left eye due to 2+ nuclear sclerotic cataract. Best corrected visual acuity was 20/25, with glare to 20/400 in the left eye. Indications for surgery are overall decrease in vision, difficulty seeing words on a compu ter screen, difficulty reading, difficulty driving in low light or at night, difficulty driving at [facility] because of headlights from other vehicles, and difficulty with glare or bright lights in any situ ation. He was consented at length concerning risks and benefits of cataract surgery, after which he expressed a desire to proceed with surgery. OPERATIVE PROCEDURE: The patient was taken to OR #3 and placed under monitored anesthesia care. A s urgical timeout was conducted confirming correct patient, correct procedure, and correct surgical sit e. He was given topical anesthesia, and prepped and draped in the usual sterile fashion. The eye wa s entered at the 6 and 3 o'clock positions. Intracameral Shugarcaine was injected into the anterior chamber, followed by Viscoat. A continuous-tear curvilinear capsulorrhexis was performed. The nucle us was hydrodissected and phacoemulsified. The cortex was evacuated using automated infusion and asp iration. Provisc was injected in the capsular bag, and a 21.5 diopter intraocular lens inserted in t he bag. Infusion and aspiration was used to evacuate the viscoelastic materials. The eye was inflat ed to physiologic pressure using balanced salt solution and found to be watertight. Approximately 0. 25 mL of a mixture of triamcinolone and moxifloxacin was injected trans sclerally into the vitreous i n the inferotemporal quadrant. An additional 0.55 mL of a mixture of triamcinolone, moxifloxacin and vancomycin was injected subconjunctivally in the superior quadrant for infection and inflammation pr ophylaxis. Wound integrity was checked with Weck-Alondra sponges. The patient was taken from the Operat ing Room in good condition and given postoperative instructions. TD: 04/13/2020 07:54
--- NOTE | 2020-04-13 19:48 | ANESTHESIA POST OP EVALUATION ---
Anesthesia Post Eval - Post Anesthesia Eval Vitals: Last Vital Signs Temp 36.3 C L 04/13/20 08:00 Pulse 58 L 04/13/20 08:00 Resp 16 04/13/20 08:00 BP 122/59 L 04/13/20 08:00 Pulse Ox 95 04/13/20 08:00 CV Function Including HR & BP: positive: Stable Pain Control: positive: Satisfactory Nausea & Vomiting: positive: Negative Mental Status: positive: Baseline Respiratory Status: Airway Patent Hydration Status: Satisfactory Anesthesia Complications: positive: None
== END 2020-04-13 06:22 | disposition home or self-care (01) ==
LOC: SDS 06:21
PROVIDERS: ATTEND Ophthalmology
DX: E11.36 Type 2 diabetes mellitus with diabetic cataract (principal); H25.12 Age-related nuclear cataract, left eye; Z79.4 Long term (current) use of insulin; G47.33 Obstructive sleep apnea (adult) (pediatric); Z87.891 Personal history of nicotine dependence; I48.91 Unspecified atrial fibrillation; I11.0 Hypertensive heart disease with heart failure; I50.9 Heart failure, unspecified; I69.920 Aphasia following unspecified cerebrovascular disease; J44.9 Chronic obstructive pulmonary disease, unspecified
CPT/HCPCS: 66984; A9270; J3490; J7120; V2632

== ENCOUNTER 2020-06-01 13:33 | Outpatient (CLI) | payer MEDICARE, OTHER ==
--- NOTE | 2020-06-01 17:23 | XRAY Report ---
PROCEDURE: Knee 2 View LT INDICATIONS: ARTHRITIS,LEFT KNEE TECHNIQUE: 2 views of the left knee(s) were acquired. COMPARISON: None. FINDINGS: Bones: No fractures or dislocations. No suspicious bony lesions. Mild tricompartmental osteoarthrit is. Patellar bone spurs. Soft tissues: No joint effusion. No suspicious soft tissue calcifications. IMPRESSION: Mild tricompartmental left knee osteoarthritis. Reviewed by: Maryam Aguilar MD, PhD on 06/01/2020 5:22 PM PDT Approved by: Maryam Aguilar MD, PhD on 06/01/2020 5:22 PM PDT Station ID: [id number]
== END 2020-06-01 13:34 | disposition home or self-care (01) ==
LOC: DI 13:33
PROVIDERS: ATTEND Family Medicine
DX: M17.12 Unilateral primary osteoarthritis, left knee (principal)

== ENCOUNTER 2020-08-21 07:00 | Outpatient (CLI) | payer MEDICARE, OTHER ==
--- NOTE | 2020-08-21 14:27 | XRAY Report ---
PROCEDURE: Knee 3 View RT INDICATIONS: DEGENERATIVE JOINT DISEASE OF R KNEE TECHNIQUE: 3 views of the right knee(s) were acquired. COMPARISON: None. FINDINGS: Bones: No fractures or dislocations. No suspicious bony lesions. Scattered subchondral sclerosis a nd spurring. Prominent superior pole of the patella spurring. There is also spurring of the tibial t uberosity. Soft tissues: No joint effusion. No suspicious soft tissue calcifications. IMPRESSION: Mild joint degeneration. 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
== END 2020-08-21 23:59 | disposition home or self-care (01) ==
LOC: DI.N 07:00
PROVIDERS: ATTEND Physical Medicine & Rehabilitation
DX: M17.11 Unilateral primary osteoarthritis, right knee (principal); M76.891 Other specified enthesopathies of right lower limb, excluding foot

== ENCOUNTER 2020-10-04 09:22 | Outpatient (CLI) | payer MEDICARE, OTHER ==
--- NOTE | 2020-10-04 09:56 | SLEEP CARE CONSULTATION ---
Information from patient questionnaire entered by Maryan Morrison. I have reviewed and concur with the information entered by Maryan Morrison. This document represents the service I personally performed and the decisions made by , Oliva Rivas ARNP. History of Present Illness Service Date and Time: 10/04/2020921 Previous diagnosis: Mild, Obstructive Sleep Apnea-Hypopnea Syndrome AHI: 11.7 (in 2008) Reason for follow up: six month (with machine issues) Equipment type: BiPAP Equipment obtained from: [facility] (getting supplies as needed) Mask style: Full face Backup mask available: Yes (old mask) Last cushion change: 2 weeks Prior sleep studies: Yes Year and Where: 2008 - [facility] HPI additional information: JAQUAN FORBES was diagnosed to have mild, AHI 11.7, obstructive sleep apnea- hypopnea syndrome and returned today for BIPAP therapy six month follow-up with some machine issues. CPAP Compliance Data - Data Reviewed with Patient Average duration of nightly device use: 7 hr 29 min Compliance rate %: 98.3 (180 days) Current pressure setting (cmH2O): Humidity settin Heated hose settin Average residual AHI: 0.9 Average large leak: 4 min 46 sec Subjective Patient concerns: reports: dry mouth, nose, throat (dry mouth, tried everything but still has dry mouth; mouthwash sometimes help), other (bearing in the machine is going out, had it checked at [facility]). denies: aerophagia, mask discomfort, air blowing in eyes, mask leak noise, condensation in mask/hose, nasal congestion, epistaxis Observed to snore while using device: No Current pressure setting perceived as: comfortable On therapy, patient: reports: sleeping better, awakening more refreshed, being more awake and alert during the day, more rested overall. denies: drowsiness while driving Initial [place] Sleepiness Scale score: 15 (in 2007) Current [place] Sleepiness Scale score: 9 Allergies and Home Medications Home medication list reviewed: Yes (no changes) Review of Systems Review of systems same as previous: Yes (no changes) Physical Exam Heart Rate: 60 O2 Saturation: 96 Height: 5 ft 7 in Weight: 235 lb Body Mass Index: 36.8 BMI Classification: Obese Impression and Plan 1. Obstructive Sleep Apnea-Hypopnea Syndrome, mild, with good treatment compliance and excellent apnea control. On BIPAP therapy, the patient has better sleep quality and is more rested overall. He has a bearing going out on the machine and did have it checked by a tech at [facility] who had him check with the company and it is not fixable. It has been making a loud noise, a sign of malf unction. Thus, the BIPAP will be updated. A DWO prescription will be made. Compliance guidelines for new device and follow up discussed. Patient's apnea severity and rationale for treatment to reduce apnea, improve sleep quality and reduce cardiovascular and cerebrovascular events was reviewed. I also reviewed the benefit of consistent device use of CPAP for hypertension, arrhythmia, and diabetes. * Continue BIPAP pressure at 21/13 cmH2O * Update BIPAP machine due to malfunction * Notify me if snoring with mask or feeling that the pressure is too much or too little * Attempt to lose weight * Call this office if any problems using BIPAP * Return for follow up 1 month after obtaining new machine, or sooner if concerns arise Counseling Topics: Spare mask, Weight loss health impact Visit Type: In Office Time Spent with Patient (minutes): 22 Provider Statement: I spent 100% of the Face to Face Visit with the patient with greater than 50% spent counseling the patient and coordination of care.
== END 2020-10-04 09:23 | disposition home or self-care (01) ==
LOC: SC 09:22
PROVIDERS: ATTEND Nurse Practitioner Family
DX: G47.33 Obstructive sleep apnea (adult) (pediatric) (principal); E66.9 Obesity, unspecified; Z68.36 Body mass index [BMI] 36.0-36.9, adult
CPT/HCPCS: 99213; G0463; 99212

== ENCOUNTER 2020-12-08 10:55 | Outpatient (CLI) | payer MEDICARE, OTHER ==
--- NOTE | 2020-12-08 11:20 | SLEEP CARE CONSULTATION ---
Information from patient questionnaire entered by Maryan Morrison. I have reviewed and concur with the information entered by Maryan Morrison. This document represents the service I personally performed and the decisions made by , Oliva Rivas ARNP. History of Present Illness Service Date and Time: 12/08/2020 1055 Previous diagnosis: Mild, Obstructive Sleep Apnea-Hypopnea Syndrome AHI: 11.7 (in 2008) Reason for follow up: first compliance after device update Equipment type: BiPAP Equipment obtained from: [employer] [facility] (getting supplies as needed) Mask style: Full face Backup mask available: Yes (old mask) Last cushion change: 1 month Prior sleep studies: Yes Year and Where: 2008 - [facility] HPI additional information: JAQUAN FORBES was diagnosed to have mild, AHI 11.7, obstructive sleep apnea- hypopnea syndrome and returned today for BIPAP therapy first compliance after updating device follow-up. CPAP Compliance Data - Data Reviewed with Patient Average duration of nightly device use: 7 hr 29 min Compliance rate %: 100 Current pressure setting (cmH2O): Humidity settin Average residual AHI: 0.4 Subjective Patient concerns: reports: dry mouth, nose, throat. denies: aerophagia, mask discomfort, air blowing in eyes, mask leak noise, condensation in mask/hose, nasal congestion, epistaxis, other Observed to snore while using device: No Current pressure setting perceived as: comfortable On therapy, patient: reports: sleeping better, awakening more refreshed, being more awake and alert during the day, more rested overall. denies: drowsiness while driving Initial [place] Sleepiness Scale score: 15 (in 2007) Current [place] Sleepiness Scale score: 9 Allergies and Home Medications Home medication list reviewed: Yes (no new meds) Review of Systems Review of systems same as previous: No (left knee pain with deg arthritis; he is f/u with ortho for poss surgery) Physical Exam Heart Rate: 61 O2 Saturation: 97 Height: 5 ft 7 in Weight: 234 lb Body Mass Index: 36.6 BMI Classification: Obese Impression and Plan 1. Obstructive Sleep Apnea-Hypopnea Syndrome, mild, with excellent treatment compliance and excellent apnea control. On BIPAP therapy, the patient has better sleep quality and is more rested overall. He has significant improvement of his sleep apnea and is very satisfied with his treatment. He [place] get some dry mouth but does not have the humidifier on. Oral dryness can be reduced by adjusting humidity setting higher or heated hose lower or by adjusting both settings. Verbal instructions given on how to change humidity and heated hose settings with rationale explaining why to change. Patient advised that chronic oral dryness can affect dental health and advised to follow up with dentist. He has tried Biotene with limited improvement. Patient's apnea severity and rationale for treatment to reduce apnea, improve sleep quality and reduce cardiovascular and cerebrovascular events was reviewed. I also reviewed the benefit of consistent device use of BIPAP for hypertension, arrhythmia, and diabetes. * Continue auto BIPAP pressure at 21/13 cmH2O * Notify me if snoring with mask or feeling that the pressure is too much or too little * Attempt to lose weight * Call this office if any problems using CPAP * Return for follow up in 1 year, or sooner if concerns arise Counseling Topics: Spare mask, Weight loss health impact Visit Type: In Office Time Spent with Patient (minutes): 11 Provider Statement: I spent 100% of the Face to Face Visit with the patient with greater than 50% spent counseling the patient and coordination of care.
== END 2020-12-08 10:56 | disposition home or self-care (01) ==
LOC: SC 10:55
PROVIDERS: ATTEND Nurse Practitioner Family
DX: G47.33 Obstructive sleep apnea (adult) (pediatric) (principal); E66.9 Obesity, unspecified; Z68.36 Body mass index [BMI] 36.0-36.9, adult
CPT/HCPCS: 99212; G0463

== ENCOUNTER 2021-12-26 09:26 | Outpatient (CLI) | payer MEDICARE, OTHER ==
[2021-12-26 10:05] VITALS: BP 171/80
--- NOTE | 2021-12-26 10:05 | SLEEP CARE CONSULTATION ---
Information from patient questionnaire entered by Kori Akhtar MA. I have reviewed and concur with the information entered by Kori Akhtar MA. This document represents the service I personally performed and the decisions made by , Oliva Rivas ARNP. History of Present Illness Service Date and Time: 12/26/2021 0926 Previous diagnosis: Mild, Obstructive Sleep Apnea-Hypopnea Syndrome AHI: 11.7 (in 2008) Reason for follow up: annual (LAST SEEN 12/08/20, RESMED) Equipment type: BiPAP Equipment obtained from: [employer] (getting supplies as needed) Mask style: Full face Backup mask available: Yes (old mask) Last cushion change: 30 days Prior sleep studies: Yes Year and Where: 2008 - [facility] HPI additional information: JAQUAN FORBES was diagnosed to have mild, AHI 11.7, obstructive sleep apnea- hypopnea syndrome and returned today for BIPAP therapy annual follow-up. Sleep Study - Results Prior sleep studies: Yes Year and Where: 2008 - [facility] CPAP Compliance Data - Data Reviewed with Patient Average duration of nightly device use: 6 HOURS 57 MINUTES Compliance rate %: 100 Current pressure setting (cmH2O): Average residual AHI: 2.3 Central apnea: .5 Obstructive apnea: 1.0 Average large leak: 2.7 Subjective Patient concerns: reports: dry mouth, nose, throat (chronic issue, even before he started on BIPAP therapy), other (SNORES WHILE USING MASK). denies: aerophagia, mask discomfort, air blowing in eyes, mask leak noise, condensation in mask/hose, nasal congestion, epistaxis Observed to snore while using device: Yes (he assumes because of his oral dryness) Current pressure setting perceived as: comfortable On therapy, patient: reports: sleeping better, awakening more refreshed, being more awake and alert during the day, more rested overall. denies: drowsiness while driving Initial [place] Sleepiness Scale score: 15 (in 2007) Current [place] Sleepiness Scale score: 7 (12/14) Allergies and Home Medications Home medication list reviewed: Yes (Naltrexone 4.5 mg daily for arthritis) Allergy and home medication list: Allergies amoxicillin trihydrate * [From Augmentin] Allergy (Verified 06/17/18 10:58) severe diarrhea crab Allergy (Verified 06/17/18 10:58) Rash potassium clavulanate * [From Augmentin] Allergy (Verified 03/23/18 11:43) Unknown pseudoephedrine HCl * [From Sudafed] Allergy (Verified 03/23/18 11:43) Anaphylaxis Review of Systems Review of systems same as previous: No (bilateral partial knee surgeries Mar 2021) Physical Exam Vital signs obtained and entered by: Wili AKHTAR CMA AAMA Blood Pressure: 171/80 (LEFT, RESP 18, PULSE 61) Cuff size: wrist Heart Rate: 65 O2 Saturation: 96 (PAPER MASK) Height: 5 ft 7 in Weight: 236 lb (WITH CLOTHES) Weight change since last visit: 2 lb gain Body Mass Index: 36.9 BMI Classification: Obese Impression and Plan 1. Obstructive Sleep Apnea-Hypopnea Syndrome, mild, with excellent treatment compliance and good apnea control. On BIPAP therapy, the patient has better sleep quality and is more rested overall. He still has some oral dryness but this has been a chronic issue. Oral dryness can be reduced by adjusting humidity setting higher or heated hose lower or by adjusting both settings. Patient advised that chronic oral dryness can affect dental health. In addition, there are oral dryness products that can be used to reduce dryness such as Biotene products, Dry mouth rinse and Xylomelts. Patient's apnea severity and rationale for treatment to reduce apnea, improve sleep quality and reduce cardiovascular and cerebrovascular events was reviewed. I also reviewed the benefit of consistent device use of BIPAP for hypertension, arrhythmia and diabetes. 2. Obesity, unspecified. Patient has gained weight. Currently patients BMI is 36.9. Patient is considering looking into a bariatric surgery because he has trouble losing weight. Obesity increases the risk of apnea, CPAP pressure requirements and overall health risks especially cardiovascular and diabetes. Thus patient is advised to lose weight. Weight loss can be done with reducing portion size, reducing refined foods and balancing content with vegetables, fruit and whole grain foods. In addition, patient encouraged to get regular exercise. * Continue BIPAP pressure at 21/13 cmH2O * Notify me if snoring with mask or feeling that the pressure is too much or too little * Attempt to lose weight * Call this office if any problems using BIPAP * Return for follow up in 1 year, or sooner if concerns arise Counseling Topics: Spare mask, Weight loss health impact Visit Type: In Office Time Spent with Patient (minutes): 24 Provider Statement: I spent 100% of the Face to Face Visit with the patient with greater than 50% spent counseling the patient and coordination of care.
== END 2021-12-26 09:27 | disposition home or self-care (01) ==
LOC: SC 09:26
PROVIDERS: ATTEND Nurse Practitioner Family
DX: G47.33 Obstructive sleep apnea (adult) (pediatric) (principal); E66.9 Obesity, unspecified; Z68.36 Body mass index [BMI] 36.0-36.9, adult
CPT/HCPCS: 99213; G0463; 99212

== ENCOUNTER 2022-11-14 14:16 | Outpatient (CLI) | payer MEDICARE, OTHER | END 2022-11-14 23:59 | disposition EMS.NT | LOC: EMS 14:16 | DX: R41.82 Altered mental status, unspecified (principal); E11.649 Type 2 diabetes mellitus with hypoglycemia without coma; Z79.4 Long term (current) use of insulin ==

== ENCOUNTER 2023-05-06 09:40 | Outpatient (CLI) | payer MEDICARE, OTHER ==
--- NOTE | 2023-05-06 10:24 | Sleep Patient Instructions ---
Sleep Center Visit Summary - Patient Visit Information Reason for Visit: Annual visit for PAP therapy - Patient Instructions Additional Instructions: You will continue with BIPAP therapy with pressure set at 21/13 cmH2O. A supply prescription will be updated with your DME. We encourage you to continue to try to lose weight. Please follow up with the sleep care office in 1 year. - Clinic Information Contact: [facility] [address] [place] [email or web address] T: [phone]
--- NOTE | 2023-05-06 10:28 | SLEEP CARE CONSULTATION ---
Information from patient questionnaire entered by Grace Castro. I have reviewed and concur with the information entered by Grace Castro. This document represents the service I personally performed and the decisions made by me, Oliva Rivas ARNP. History of Present Illness Service Date and Time: 05/06/2023 0940 Previous diagnosis: Mild, Obstructive Sleep Apnea-Hypopnea Syndrome AHI: 11.7 (in 2008) Reason for follow up: annual (LAST SEEN 12/2021) Equipment type: BiPAP (ResMed AirCurve 10; s/u 09/2020) Equipment obtained from: [employer] (getting supplies as needed) Mask style: Full face Backup mask available: Yes (old mask) Last cushion change: 2 weeks Prior sleep studies: Yes Year and Where: 2008 - [facility] HPI additional information: JAQUAN FORBES was diagnosed to have mild, AHI 11.7, obstructive sleep apnea-hypopnea syndrome and returned today for BIPAP therapy annual follow-up. Sleep Study - Results Prior sleep studies: Yes Year and Where: 2008 - [facility] CPAP Compliance Data - Data Reviewed with Patient Average duration of nightly device use: 6 HRS 50 MINS Compliance rate %: 98 (11/06/22-05/04/23; 178/180 days) Current pressure setting (cmH2O): Average residual AHI: 0.7 Central apnea: 0.4 Obstructive apnea: 0.1 Average large leak: 1.2 L/min Subjective Patient concerns: reports: air blowing in eyes, dry mouth, nose, throat (try chin strap to reduce oral venting). denies: aerophagia, mask discomfort, mask leak noise, condensation in mask/hose, nasal congestion, epistaxis Observed to snore while using device: Yes (occasionally) Current pressure setting perceived as: comfortable On therapy, patient: reports: sleeping better, awakening more refreshed, being more awake and alert during the day, more rested overall. denies: drowsiness while driving Initial [place] Sleepiness Scale score: 15 (in 2007) Current [place] Sleepiness Scale score: 9 (05/06/23) Allergies and Home Medications Known drug allergies: Yes (as listed) Drug allergies reviewed: Yes Home medication list reviewed: Yes (no changes) Allergy and home medication list: Allergies amoxicillin trihydrate * [From Augmentin] Allergy (Verified 06/17/18 10:58) severe diarrhea crab Allergy (Verified 06/17/18 10:58) Rash potassium clavulanate * [From Augmentin] Allergy (Verified 03/23/18 11:43) Unknown pseudoephedrine HCl * [From Sudafed] Allergy (Verified 03/23/18 11:43) Anaphylaxis Review of Systems Review of systems same as previous: Yes (had three episodes of Covid; hospitalized once; November 14, "" BS at 0) Physical Exam Vital signs obtained and entered by: GRACE Wong MA Blood Pressure: 133/73 (LEFT) Cuff size: wrist Heart Rate: 62 O2 Saturation: 97 Height: 5 ft 7 in Weight: 224 lb Body Mass Index: 35.0 BMI Classification: Obese Impression and Plan 1. Obstructive Sleep Apnea-Hypopnea Syndrome, mild, with good treatment compliance and good apnea control. On BIPAP therapy, the patient has better sleep quality and is more rested overall. Patient has significant improvement of their sleep apnea and is satisfied with current CPAP therapy. Patient states that sometimes his mouth will come open and he will have more dry mouth and his will complain of him snoring. I encouraged him to try a chinstrap to help reduce oral venting. He voiced understanding and agreement. I will update his prescription for supplies and add a chinstrap. We will follow-up with him next year. Patient's apnea severity and rationale for treatment to reduce apnea, improve sleep quality and reduce cardiovascular and cerebrovascular events was reviewed. I also reviewed the benefit of consistent device use of BIPAP for hypertension, arrhythmia and diabetes. 2. Obesity, unspecified. Currently patients BMI is 35. Obesity increases the risk of apnea, BIPAP pressure requirements and overall health risks especially cardiovascular and diabetes. Thus patient is advised to lose weight. * Continue BIPAP pressure at 21/13 cmH2O * Update supplies * Notify me if snoring with mask or feeling that the pressure is too much or too little * Attempt to lose weight * Call this office if any problems using BIPAP * Return for follow up in 1 year, or sooner if concerns arise Counseling Topics: Spare mask, Weight loss health impact Prescriptions: Device supplies Visit Type: In Office Time Spent with Patient (minutes): 22 Provider Statement: I spent 100% of the Face to Face Visit with the patient with greater than 50% spent counseling the patient and coordination of care.
[2023-05-06 10:29] VITALS: BP 133/73; O2SAT 97
== END 2023-05-06 09:41 | disposition home or self-care (01) ==
LOC: SC 09:40
PROVIDERS: ATTEND Nurse Practitioner Family
DX: G47.33 Obstructive sleep apnea (adult) (pediatric) (principal); E66.9 Obesity, unspecified; Z68.35 Body mass index [BMI] 35.0-35.9, adult
CPT/HCPCS: 99213; G0463; 99212

== ENCOUNTER 2024-05-13 13:17 | Outpatient (CLI) | payer MEDICARE, OTHER ==
--- NOTE | 2024-05-13 13:53 | Sleep Patient Instructions ---
Sleep Center Visit Summary - Patient Visit Information Reason for Visit: Annual Follow up - Patient Instructions Additional Instructions: You will continue with BiPAP therapy with pressure set at 21/13 cmH2O. A supply prescription will be updated with your DME supplier. We encourage you to continue to try to lose weight. Please follow up with the sleep care office in 1 year. - Clinic Information Contact: [facility] [address] [place] [address] [email or web address] T: [phone]
--- NOTE | 2024-05-13 13:57 | SLEEP CARE CONSULTATION ---
Information from patient questionnaire entered by Grace Castro. I have reviewed and concur with the information entered by Grace Castro. This document represents the service I personally performed and the decisions made by , Oliva Rivas ARNP. History of Present Illness Service Date and Time: 05/13/2024 1317 Previous diagnosis: Mild, Obstructive Sleep Apnea-Hypopnea Syndrome AHI: 11.7 (in 2008) Reason for follow up: annual (LAST SEEN 04/2023) Equipment type: BiPAP (ResMed AirCurve 10; s/u 09/2020) Equipment obtained from: [employer] (getting supplies as needed) Mask style: Full face Backup mask available: Yes (old mask) Last cushion change: 1 week Prior sleep studies: Yes Year and Where: 2008 - [facility] HPI additional information: JAQUAN FORBES was diagnosed to have mild, AHI 11.7, obstructive sleep apnea-hypopnea syndrome and returned today for BIPAP therapy annual follow-up. Sleep Study - Results Prior sleep studies: Yes Year and Where: 2008 - [facility] CPAP Compliance Data - Data Reviewed with Patient Average duration of nightly device use: 6 HRS 48 MINS Compliance rate %: 98 (11/15/23-05/12/24; 178/180 days used) Current pressure setting (cmH2O): Average residual AHI: 1.1 Central apnea: 0.4 Obstructive apnea: 0.4 Hypopnea: 0.2 Average large leak: 1.1 L/min Subjective Missed days of use due to: reports: other (no home) Patient concerns: reports: dry mouth, nose, throat (occasional dry mouth). denies: aerophagia, mask discomfort, air blowing in eyes, mask leak noise, condensation in mask/hose, nasal congestion, epistaxis Observed to snore while using device: Yes (occasionally per when oral venting) Current pressure setting perceived as: comfortable On therapy, patient: reports: sleeping better, awakening more refreshed, being more awake and alert during the day, more rested overall. denies: drowsiness while driving Initial [place] Sleepiness Scale score: 15 (in 2007) Current [place] Sleepiness Scale score: 4 (05/13/24) Allergies and Home Medications Known drug allergies: Yes (as listed) Drug allergies reviewed: Yes Home medication list reviewed: Yes (no changes) Allergy and home medication list: Allergies amoxicillin trihydrate * [From Augmentin] Allergy (Verified 05/13/24 13:30) severe diarrhea crab Allergy (Verified 05/13/24 13:30) Rash potassium clavulanate * [From Augmentin] Allergy (Verified 05/13/24 13:30) Unknown pseudoephedrine HCl * [From Sudafed] Allergy (Verified 05/13/24 13:30) Anaphylaxis Review of Systems Review of systems same as previous: No (Dupuytren's contracture) Physical Exam Vital signs obtained and entered by: GRACE Wong MA Blood Pressure: 145/74 (RIGHT ARM) Cuff size: long Heart Rate: 64 O2 Saturation: 96 Height: 5 ft 7 in Weight: 229 lb 3.2 oz Body Mass Index: 35.9 BMI Classification: Obese Impression and Plan 1. Obstructive Sleep Apnea-Hypopnea Syndrome, mild, with good treatment compliance and good apnea control. On BIPAP therapy, the patient has better sleep quality and is more rested overall. He has significant improvement of his sleep apnea and is comfortable with BiPAP therapy.He says he gets a little dry mouth at times but does oral vent on those occasions. His will complain of snoring when he is oral venting. Patient's apnea severity and rationale for treatment to reduce apnea, improve sleep quality and reduce cardiovascular and cerebrovascular events was reviewed. I also reviewed the benefit of consistent device use of BIPAP for hypertension, arrhythmia, diabetes. 2. Obesity, unspecified. Currently patients BMI is 35.9. Obesity increases the risk of apnea, BIPAP pressure requirements and overall health risks especially cardiovascular and diabetes. Thus patient is advised to lose weight. * Continue BiPAP pressure at 21/13 cmH2O * Update supply prescription * Notify me if snoring with mask or feeling that the pressure is too much or too little * Attempt to lose weight * Call this office if any problems using BIPAP * Return for follow up in 12 months, or sooner if concerns arise Counseling Topics: Spare mask, Weight loss health impact Prescriptions: Device supplies Follow up with Sleep Care in: 1 year Visit Type: In Office Time Spent with Patient (minutes): 20 Provider Statement: I spent 100% of the Face to Face Visit with the patient with greater than 50% spent counseling the patient and coordination of care.
[2024-05-13 13:58] VITALS: BP 145/74; O2SAT 96
== END 2024-05-13 13:18 | disposition home or self-care (01) ==
LOC: SC 13:17
PROVIDERS: ATTEND Nurse Practitioner Family
DX: G47.33 Obstructive sleep apnea (adult) (pediatric) (principal); E66.9 Obesity, unspecified; Z68.35 Body mass index [BMI] 35.0-35.9, adult
CPT/HCPCS: 99213; G0463; 99212